=== PATIENT | male | born 1955 | race Caucasian/White ===

== ENCOUNTER → 2016-09-13 | Outpatient (CLI) | payer BC ==
[~2016-09-13] MED LIST: ALPH600C2 PO; ASCO10003 PO; ASTA1CAP PO; B-COTAB56 PO; CHOL100010 PO; COEN50CA22 PO; HYDR-5688 PO; IBUP-1050 PO; LYSI100010 PO; MAGN1CAP2 PO; MENA1CAP PO; MISCCAP52 PO; MISCCAP80 PO; OMG3 PO; PHOS1CAP3 PEG; SERT50TA PO; VITAL RED PO; VTMB12 PO; [UNRECOGNIZED DRUG - CODE] PO; [UNRECOGNIZED DRUG - OTHER] PO
--- NOTE | 2016-09-13 16:29 | DIAGNOSTIC IMAGING REPORT ---
MRI OF THE LEFT KNEE WITHOUT CONTRAST CLINICAL HISTORY: Medial left knee pain. Previous tibial fracture. COMPARISON STUDY: None. TECHNIQUE: Utilizing a 1.5 Regina magnet and dedicated coil, multiplanar, multiecho imaging of the left knee was performed without intravenous or intraarticular contrast. FINDINGS: There is deformity of the lateral tibial plateau with mild depression. This represents an old, healed fracture. There is no acute fracture. The cruciate and collateral ligaments are intact. The extensor mechanism is intact. There is no joint effusion. There is no suspicious marrow replacement. There is a complex vertical tear of the body of the medial meniscus. There is slight truncation of the posterior horn of the lateral meniscus. This is likely old. There is slight irregularity of the anterior horn of the lateral meniscus without definite tear. There is moderate to severe chondrosis within the lateral compartment with mild chondrosis within the patellofemoral compartment and moderate chondrosis within the medial compartment. IMPRESSION: 1. Vertical tear of the body of the medial meniscus. 2. Old lateral tibial plateau fracture with mild depression. 3. Moderate to severe chondrosis within the lateral compartment with moderate chondrosis within the medial compartment. 4. Intact cruciate and collateral ligaments. 5. Truncated lateral meniscus suggestive of old tear. Electronically signed by: Brent Canales M.D. 09/13/2016 4:27 PM Dictated Date/Time: 09/13/2016 4:22 PM
== END | disposition home or self-care (01) ==
LOC: C.MRIBC 15:00
PROVIDERS: ATTEND Orthopaedic Surgery
DX: M25.562 Pain in left knee (principal); S83.242A Other tear of medial meniscus, current injury, left knee, initial encounter; X58.XXXA Exposure to other specified factors, initial encounter; M94.8X8 Other specified disorders of cartilage, other site; M23.301 Other meniscus derangements, unspecified lateral meniscus, left knee

== ENCOUNTER → 2016-09-15 | Outpatient (CLI) | payer BC ==
[2016-09-15 11:24] LABS: URINE APPEARANCE CLOUDY (CLEAR); URINE BILIRUBIN NEG (NEG); URINE COLOR YELLOW; URINE NITRITE NEG (NEG); URINE SPECIFIC GRAVITY 1.003 (1.000-1.030); UROBILINOGEN NEG (NEG); ZZUR CULT IF INDIC CLEAN CATCH YES
[2016-09-15 11:27] LABS: MANUAL MICROSCOPIC REQUIRED? NO; REVIEW REQ? NO
== END | disposition home or self-care (01) ==
LOC: C.LABBC 09:56
PROVIDERS: ATTEND Internal Medicine
DX: R31.9 Hematuria, unspecified (principal)

== ENCOUNTER → 2016-09-15 | Outpatient (CLI) | payer BC ==
--- NOTE | 2016-09-15 10:59 | DIAGNOSTIC IMAGING REPORT ---
KUB CLINICAL HISTORY: Hematuria. FINDINGS: 2 AP abdominal radiographs are obtained. Correlation is made with radiographs of lumbar spine dated 06/09/2014 and pelvic radiograph dated 04/04/2011. There is a nonobstructed abdominal bowel gas pattern. There is no radiographic evidence of nephrolithiasis. Large pelvic phleboliths are unchanged from prior studies dating back to 2010. The visualized bony structures appear intact. IMPRESSION: 1. Nonobstructed abdominal bowel gas pattern. 2. There is no radiographic evidence of nephrolithiasis. 3. Large pelvic calcifications are consistent with phleboliths and unchanged dating back to 2010. Electronically signed by: Adam Larson M.D. 09/15/2016 10:58 AM Dictated Date/Time: 09/15/2016 10:56 AM
[2016-09-15 11:17] LABS: BASO % 0.2 %; BASO ABS # 0.02 K/uL (0-0.2); COMPLETE YES; EOS % 1.1 %; HEMATOCRIT 44.1 % (42-52); IG% 0.4 %; MEAN CELL VOLUME 90.2 fL (80-100); MEAN CORPUSCULAR HEMOGLOBIN 31.7 pg (25-34); MEAN CORPUSCULAR HGB CONC 35.1 g/dl (32-36); MEAN PLATELET VOLUME 10.5 fL (7.4-10.4); MONO % 9.1 %; NEUT % 72.2 %; PLATELET COUNT 232 K/uL (130-400); RED BLOOD COUNT 4.89 M/uL (4.7-6.1)
== END | disposition home or self-care (01) ==
LOC: C.RADBC 10:03
PROVIDERS: ATTEND Internal Medicine
DX: R31.9 Hematuria, unspecified (principal)

== ENCOUNTER → 2016-10-02 | Day surgery (SDC) | payer BC ==
[2016-10-01 14:35] VITALS: Ht 175.3 cm; Wt 90.9 kg
[~2016-10-02] VITALS: Ht 175.3 cm; Wt 90.9 kg
[~2016-10-02] MED LIST changes: -ALPH600C2 PO; -ASCO10003 PO; +ATROPINE SULFATE 0.1 MG/ML 5ML SYR IV PRN; -B-COTAB56 PO; +BUPIVACAINE 0.5 % 5 MG/1 ML PF 10ML VIAL ONE; +CEFAZOLIN 1000MG/55 ML D5W IV SCH; +CEFAZOLIN IV 2,000 MG/60 ML D5W IV ONE; -CHOL100010 PO; -COEN50CA22 PO; +DEXAMETHASONE SOD INJ 4 MG/ML VIAL ONE; +EpINEphrine INJ 1MG/ML AMP 1 MG/ML AMP ONE; +FENTANYL CITRATE INJ 50 MCG/1 ML 2 ML VIAL IV PRN; +FENTANYL CITRATE INJ 50 MCG/1 ML 2 ML VIAL ONE; -IBUP-1050 PO; +KETOROLAC TROMETHAMINE 30 MG/ML VIAL IV. PRN; +KETOROLAC TROMETHAMINE 30 MG/ML VIAL ONE; +LABETALOL HCL IV 5 MG/ML 20ML IV PRN; +LACTATED RINGER'S 1000ML 1,000 ML IV SCH; +LIDOCAINE HCL 2% 2 ML VIAL (20MG/ML) ONE; -MAGN1CAP2 PO; -MENA1CAP PO; +MIDAZOLAM HCL 1 MG/ML 2ML VIAL ONE; -MISCCAP52 PO; -MISCCAP80 PO; +NURSING VERBAL MED ORDER ONE; -OMG3 PO; +ONDANSETRON INJ 2 MG/ML 2 ML VIAL IV PRN; +ONDANSETRON INJ 2 MG/ML 2 ML VIAL ONE; +OXYCODONE/ACETAMINOPHEN 5-325 TAB PO PRN; -PHOS1CAP3 PEG; +PROPOFOL IV EMULSION 10 MG/ML 20 ML VIAL IV ONE; +ROPIVACAINE 0.5% 5 MG/ML 30 ML VIAL ONE; +SODIUM CHLORIDE 0.9% 1000ML 1,000 ML IV SCH; -VTMB12 PO; -[UNRECOGNIZED DRUG - CODE] PO; -[UNRECOGNIZED DRUG - OTHER] PO
--- NOTE | 2016-10-02 10:04 | History & Physical Bridge - SC ---
H&P Re-Evaluation Bridge Note: I have examined the patient, reviewed the History & Physical and in the interval since the performance of the History & Physical I have noted the following changes of clinical significance: No changes noted
--- NOTE | 2016-10-02 10:50 | [facility] Post Operative Brief Note ---
Immediate Operative Summary Operative Date Oct 02, 2016. Pre-Operative Diagnosis Medial meniscus tear left knee Post-Operative Diagnosis same as preop Procedure(s) Performed Left Knee Arthroscopy, Medial and Lateral Meniscectomy, Chrondroplasty and removal plica band Surgeon Dr. Sauceda Process Helper Surgeon(s) SHANKAR Diaz Estimated Blood Loss 0ml Findings ABOVE Specimens none per surgeon Anesthesia LMA Complication(s) None Disposition Recovery Room / PACU
--- NOTE | 2016-10-02 11:00 | Discharge Instructions-SurgCtr ---
Discharge Instructions Date of Service Oct 02, 2016. Visit Reason for Visit: Left Knee Medial Meniscus Tear Discharge Discharge Diagnosis / Problem: SAME ABOVE Discharge Goals Goal(s): Decrease discomfort, Improve function Activity Recommendations Activity Limitations: as noted below Lifting Limitations: until after follow-up appointment Exercise/Sports Limitations: until after follow-up appointment Weightbearing Status: Left weightbearing (as tolerated) Anesthesia . Post Anesthesia Instructions: If you have had General Anesthesia or IV Sedation: * Do not drive today. * Resume driving when surgeon permits. * Do not make important decisions or sign legal documents today. * Call surgeon for: 1. Temperature elevations greater than 101 degrees F. 2. Uncontrollable pain. 3. Excessive bleeding. 4. Persistent nausea and vomiting. 5. Medication intolerance (nausea, vomiting or rash). * For nausea and vomiting use only clear liquids such as: tea, soda, bouillon until nausea subsides, then gradually increase diet as tolerated. * If you have any concerns or questions, call your surgeon's office. If physician is unavailable and it is an emergency, call 911 or go to the nearest emergency room. . Instructions / Follow-Up Instructions / Follow-Up MEDICATIONS: * Resume previous medications unless instructed otherwise by your surgeon. * Always take pain medication on a full stomach or with food to avoid upset stomach. * Do not drink alcohol or drive while taking narcotics. * Ibuprofen or Tylenol may be taken if narcotic not needed. SPECIAL CARE INSTRUCTIONS: __ None _X_ Keep extremity elevated and iced x 48 hours; apply ice 20-30 minutes 8-10 times/day. May remove at night. __ Crutches __ May discard when able __ Brace/Post-op shoe __ 24 hrs/day __ Remove at night _X_ Dressing __ Maintain until seen in office, may shower with plastic over site _X_ Remove dressings in 24-48 hours and then may shower _X_ Cover incisions with band-aids after showering __ Do not remove steri-strips Call physician if chills or temperature rises above 102 degrees or pain unrelieved by prescribed pain medications. Office [phone] Diet Recommendations Home Diet: resume previous diet Procedures Procedures Performed: Left Knee Arthroscopy, Medial and Lateral Meniscectomy, Chrondroplasty and removal plica band Pending Studies Studies pending at discharge: no Medical Emergencies . Who to Call and When: Medical Emergencies: If at any time you feel your situation is an emergency, please call 911 immediately. . Non-Emergent Contact Non-Emergency issues call your: Primary Care Provider . . "Provider Documentation" section prepared by Oscar Mclain.
--- NOTE | 2016-10-02 11:30 | OPERATIVE REPORT ---
DATE OF OPERATION: 10/02/2016 PREOPERATIVE DIAGNOSIS: Medial meniscus tear left knee. POSTOPERATIVE DIAGNOSES: 1. Medial meniscus tear left knee. 2. Anterior horn lateral meniscus tear. 3. Grade 3-4 articular changes of the trochlear groove distal femur. 4. He had grade 2 changes to the medial femoral condyle articular changes. 5. He had a large thick plica band in the suprapatellar joint. PROCEDURES: 1. Left knee arthroscopy, partial medial and lateral meniscectomies. 2. Removal of plica band. 3. Chondroplasty trochlear groove distal femur. SURGEON: Dr. Sauceda. NON LICENSED NUCLEAR EQUIPMENT OPERATOR: Oscar Mclain PA-C. ANESTHESIOLOGIST: Dr. Hernandez. ANESTHESIA: LMA. DRAINS: None. COMPLICATIONS: None. CONDITION: The patient tolerated the procedure well and returned to recovery room in apparent satisfactory condition. 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 He has had some trauma to the leg for fracture that was treated in traction but he presents with knee problems consistent with medial meniscus tear per his MRI exam. He would like to go ahead and proceed with surgery. The procedure, expected outcome, side effects, and risks were all explained in detail in the office. OPERATION AND FINDINGS: PROCEDURE: The patient was taken to the operating room at which time he was placed supine on the operating table and put to sleep by the anesthesia department. Examination of left knee was performed. Ligamentous joiner it was stable. Went ahead and prepped and draped in usual sterile fashion. Began arthroscopic examination in the anteromedial and anterolateral portals. Immediately we found a flap tear of the posterior horn of the medial meniscus. We came in with upbiting scissors and full radius resector and trimmed it back to a stable rim. We found articular changes, grade 2 to the femoral condyle, mostly on the flexion surface. A lot of scar tissue in the intercondylar notch. Over into the lateral compartment were found anterior horn lateral meniscus tear and articular changes on the femoral condyle here, probably grade 2-3 changes. Debridement was done here both the meniscus and also the epicondyle. ACL was fine. The patellofemoral joint we found very large thick plica bands which was removed. Underneath the surface of the patella it was in good shape but he had grade 3 changes almost 4 to the trochlear groove of the distal femur. Chondroplasty was performed here. The knee then was copiously irrigated. All cannulas were removed. Portals were closed with 4-0 nylon sutures. 30 mL of ropivacaine, 10 mg of Toradol, and 1 mL of epinephrine was placed in the knee joint. Placed a sterile dressing of Xeroform, 4 x 4, ABD, Sof-Rol, and Kemar bandage and returned back to recovery room in apparent satisfactory condition. SURGICAL FINDINGS: Included 1. Medial meniscus tear. 2. Anterior horn lateral meniscus tear. 3. Grade 3 articular changes to the distal trochlear groove of the femur and also articular changes to the medial and lateral femoral condyles, probably grade 2. I attest to the content of the Intraoperative Record and any orders documented therein. Any exceptio ns are noted below.
--- NOTE | 2016-10-02 11:45 | Anesthesia Progress Nt - [facility] ---
Anesthesia Post Op Note Date & Time Oct 02, 2016 at 11:46 Vital Signs Pain Intensity: 0 Vital Signs Past 12 Hours Date Time Temp Pulse Resp B/P Pulse Ox O2 Delivery O2 Flow Rate FiO2 10/02/16 11:35 54 12 10/02/16 11:35 54 9 104/72 98 10/02/16 11:33 36.4 10/02/16 11:30 49 11 105/74 98 10/02/16 11:30 49 11 10/02/16 11:25 46 10 10/02/16 11:25 45 10 98/71 100 10/02/16 11:20 47 9 10/02/16 11:20 47 9 100/72 100 10/02/16 11:15 51 14 10/02/16 11:15 53 14 103/68 100 10/02/16 11:10 46 17 102/70 99 10/02/16 11:10 45 17 10/02/16 11:05 44 13 10/02/16 11:05 44 13 97/69 99 10/02/16 11:00 44 16 10/02/16 11:00 44 16 101/73 98 10/02/16 10:58 36.2 47 12 118/70 98 Diffusion Mask 10 10/02/16 09:11 36.2 51 16 118/80 97 Room Air Notes Mental Status: alert / awake / arousable, participated in evaluation Pt Amnestic to Procedure: Yes Nausea / Vomiting: adequately controlled Pain: adequately controlled Airway Patency, RR, SpO2: stable & adequate BP & HR: stable & adequate Hydration State: stable & adequate Anesthetic Complications: no major complications apparent
[2016-10-02 11:51] VITALS: TEMP 36.2
[2016-10-02 12:14] VITALS: BP 123/81; PULSE 49; O2SAT 97
== END | disposition home or self-care (01) ==
LOC: X.SURG 08:49
PROVIDERS: ATTEND Orthopaedic Surgery
DX: S83.242A Other tear of medial meniscus, current injury, left knee, initial encounter (principal); X58.XXXA Exposure to other specified factors, initial encounter; S83.282A Other tear of lateral meniscus, current injury, left knee, initial encounter; M67.52 Plica syndrome, left knee

== ENCOUNTER → 2016-10-05 | Outpatient (CLI) | payer BC ==
[~2016-10-05] MED LIST changes: -ATROPINE SULFATE 0.1 MG/ML 5ML SYR IV PRN; -BUPIVACAINE 0.5 % 5 MG/1 ML PF 10ML VIAL ONE; -CEFAZOLIN 1000MG/55 ML D5W IV SCH; -CEFAZOLIN IV 2,000 MG/60 ML D5W IV ONE; -DEXAMETHASONE SOD INJ 4 MG/ML VIAL ONE; -EpINEphrine INJ 1MG/ML AMP 1 MG/ML AMP ONE; -FENTANYL CITRATE INJ 50 MCG/1 ML 2 ML VIAL IV PRN; -FENTANYL CITRATE INJ 50 MCG/1 ML 2 ML VIAL ONE; -KETOROLAC TROMETHAMINE 30 MG/ML VIAL IV. PRN; -KETOROLAC TROMETHAMINE 30 MG/ML VIAL ONE; -LABETALOL HCL IV 5 MG/ML 20ML IV PRN; -LACTATED RINGER'S 1000ML 1,000 ML IV SCH; -LIDOCAINE HCL 2% 2 ML VIAL (20MG/ML) ONE; -MIDAZOLAM HCL 1 MG/ML 2ML VIAL ONE; -NURSING VERBAL MED ORDER ONE; -ONDANSETRON INJ 2 MG/ML 2 ML VIAL IV PRN; -ONDANSETRON INJ 2 MG/ML 2 ML VIAL ONE; -OXYCODONE/ACETAMINOPHEN 5-325 TAB PO PRN; -PROPOFOL IV EMULSION 10 MG/ML 20 ML VIAL IV ONE; -ROPIVACAINE 0.5% 5 MG/ML 30 ML VIAL ONE; -SODIUM CHLORIDE 0.9% 1000ML 1,000 ML IV SCH
--- NOTE | 2016-10-05 10:02 | DIAGNOSTIC IMAGING REPORT ---
ULTRASOUND KIDNEYS AND BLADDER CLINICAL HISTORY: Hematuria. COMPARISON STUDY: KUB dated 09/15/2016. TECHNIQUE: Real-time, grayscale, and color flow sonography of the kidneys and bladder is performed. Images are reviewed in the transverse and longitudinal planes. FINDINGS: Kidneys: The kidneys demonstrate cortical atrophy and are normal in echotexture. The right kidney measures 11.6 x 6.2 x 5.0 cm and the left kidney measures 10.9 x 6.8 x 4.8 cm. There is no hydronephrosis. No shadowing renal calculi are identified. There is no sonographic evidence of contour deforming renal mass lesion. No perinephric fluid is identified. Bladder: The bladder is normal in appearance. Bilateral ureteral jets were seen. IMPRESSION: 1. The kidneys demonstrate mild cortical atrophy and are without hydronephrosis. 2. The bladder is normal as visualized. Electronically signed by: Adam Larson M.D. 10/05/2016 10:00 AM Dictated Date/Time: 10/05/2016 9:59 AM
== END | disposition home or self-care (01) ==
LOC: C.ULTR 09:26
PROVIDERS: ATTEND Internal Medicine
DX: R31.9 Hematuria, unspecified (principal)

== ENCOUNTER → 2016-11-28 | Outpatient (CLI) | payer BC | END | disposition home or self-care (01) | LOC: C.LAB1850 10:18 | PROVIDERS: ATTEND Internal Medicine | DX: R31.9 Hematuria, unspecified (principal); N40.0 Benign prostatic hyperplasia without lower urinary tract symptoms; Z11.59 Encounter for screening for other viral diseases ==

== ENCOUNTER → 2016-12-04 | Outpatient (CLI) | payer BC | END | disposition home or self-care (01) | LOC: C.PATHSPEC 11:28 | PROVIDERS: ATTEND Urology | DX: R31.9 Hematuria, unspecified (principal) ==

== ENCOUNTER → 2016-12-12 | Outpatient (CLI) | payer BC ==
[~2016-12-12] MED LIST changes: +OPTIRAY 320 IV PRN
--- NOTE | 2016-12-12 10:20 | DIAGNOSTIC IMAGING REPORT ---
ABDOMEN AND PELVIS CT WITH AND WITHOUT IV CONTRAST, UROGRAM PROTOCOL CT DOSE: 1862.70 mGycm HISTORY: R31.9 Hematuria. not diabetic, no latex allergy, no iodine allergy TECHNIQUE: Multiaxial CT images of the abdomen and pelvis were performed both before and after the use of intravenous contrast to evaluate the urinary system. Maximal intensity projection images were performed at the workstation by the radiologist. COMPARISON STUDY: KUB 09/15/2016. FINDINGS: No renal or ureteral calculi. No hydronephrosis. No suspicious filling defects seen within the bilateral renal collecting systems, ureters, or bladder. Of note, the bladder is now well-distended and not well opacified resulting in suboptimal evaluation for a bladder mass. The lung bases are clear. The liver, spleen, gallbladder, pancreas, kidneys, and adrenal glands are within normal limits. No bowel wall thickening or obstruction. The pelvic organs are unremarkable. No suspicious lytic or blastic osseous lesions. Small fat-containing left inguinal hernia. Normal appendix. IMPRESSION: 1. No renal or ureteral stones. No hydronephrosis. 2. No suspicious filling defects seen within the opacified bilateral renal collecting systems, ureters, or bladder. Electronically signed by: Yair Gross M.D. 12/12/2016 10:19 AM Dictated Date/Time: 12/12/2016 9:58 AM
== END | disposition home or self-care (01) ==
LOC: C.CTS 09:12
PROVIDERS: ATTEND Urology
DX: R31.9 Hematuria, unspecified (principal)

== ENCOUNTER → 2017-04-02 | Day surgery (SDC) | payer BC ==
[2017-03-21 08:34] VITALS: Ht 175.3 cm; Wt 90.9 kg
[~2017-04-02] VITALS: Ht 175.3 cm; Wt 90.9 kg
[~2017-04-02] MED LIST changes: -HYDR-5688 PO; +LIDOCAINE HCL 2% 2 ML VIAL (20MG/ML) ONE; -OPTIRAY 320 IV PRN; +PROPOFOL IV EMULSION 10 MG/ML 20 ML VIAL IV ONE
[2017-04-02 08:09] VITALS: TEMP 36.2
--- NOTE | 2017-04-02 08:21 | Endo History and Physical ---
History & Physical Date of Service: Apr 02, 2017. Chief Complaint: SCREENING Referring Physician: DR. BRUMFIELD History of Present Illness 61 yo CM who presents for screening colonoscopy. Past Medical History Anxiety, Depression Past Surgical History Hx Cardiac Surgery: No Hx Internal Defibrillator: No Hx Pacemaker: No Hx Abdominal Surgery: Yes (HERNIA REPAIR) Hx of Implantable Prosthesis: No Hx Post-Op Nausea and Vomiting: No Hx Cancer Surgery: No Hx Thoracic Surgery: No Hx Orthopedic: Yes (C3-4 FUSION (FULL ROM), LT TIBIA COMPOUND FRACTURE REPAIR X2, LT KNEE SCOPE) Hx Urinary Tract Surgery: No Family History None Social History Smoking Status: Former Smoker Hx Substance Use: No Hx Alcohol Use: No Allergies Coded Allergies: No Known Allergies (Verified , 04/02/17) Current Medications Reported Home Medications Medications Dose Route/Sig Max Daily Dose Days Date Category [Vital Red] 1 Dose PO QAM 10/01/16 Reported Lysine (Lysine Hcl) 1,000 Mg Tab 3,000 Mg PO QAM 09/17/14 Reported Astaxanthin 4 Mg Cap 8 Mg PO QAM 09/17/14 Reported Zoloft (Sertraline HCl) 50 Mg Tab 75 Mg PO HS 09/07/14 Reported Vital Signs Weight (Kilograms): 90.91 Height (Feet): 5 Height (Inches): 9 Date Time Temp Pulse Resp B/P (MAP) Pulse Ox O2 Delivery O2 Flow Rate FiO2 04/02/17 08:09 36.2 57 16 133/83 (100) 96 Room Air Physical Exam General Appearance: WD/WN, no apparent distress Respiratory/Chest: Auscultation: breath sounds normal Cardiovascular: Heart Auscultation: RRR Abdomen: Bowel Sounds: normal Inspection & Palpation: soft, non-distended, no tenderness, guarding & rebound Assessment and Plan Assessment: 61 yo CM who presents for screening colonoscopy. Plan: Proceed with colonoscopy.
--- NOTE | 2017-04-02 09:09 | GI REPORT ---
Procedure Date: 04/02/2017 8:19 AM Procedure: Colonoscopy Indications: Screening for colorectal malignant neoplasm Medicines: Monitored Anesthesia Care Complications: No immediate complications. Estimated Blood Loss: Estimated blood loss: none. Procedure: Pre-Anesthesia Assessment: - Prior to the procedure, a History and Physical was performed, and patient medications and allergies were reviewed. The patient's tolerance of previous anesthesia was also reviewed. The risks and benefits of the procedure and the sedation options and risks were discussed with the patient. All questions were answered, and informed consent was obtained. Prior Anticoagulants: The patient has taken no previous anticoagulant or antiplatelet agents. ASA Grade Assessment: I - A normal, healthy patient. After reviewing the risks and benefits, the patient was deemed in satisfactory condition to undergo the procedure. After I obtained informed consent, the scope was passed under direct vision. Throughout the procedure, the patient's blood pressure, pulse, and oxygen saturations were monitored continuously. The Scope was introduced through the anus and advanced to the terminal ileum. The colonoscopy was performed without difficulty. The patient tolerated the procedure well. The quality of the bowel preparation was good. The terminal ileum, ileocecal valve, appendiceal orifice, and rectum were photographed. Findings: A 5 mm polyp was found in the sigmoid colon. The polyp was sessile. The polyp was removed with a hot snare. Resection and retrieval were complete. Non-bleeding internal hemorrhoids were found during retroflexion. The hemorrhoids were small. Impression: - One 5 mm polyp in the sigmoid colon, removed with a hot snare. Resected and retrieved. - Non-bleeding internal hemorrhoids. Recommendation: - Resume previous diet. - Continue present medications. - Repeat colonoscopy for surveillance based on pathology results. - Return to primary care physician as previously scheduled. Alex Medrano DO 04/02/2017 9:08:32 AM This report has been signed electronically. Note Initiated On: 04/02/2017 8:19 AM I attest to the content of the Intraoperative Record and orders documented therein, exceptions below
--- NOTE | 2017-04-02 09:16 | Discharge Instructions ---
Endoscopy Patient Instructions Date / Procedure(s) Performed Apr 02, 2017. Colonoscopy Allergy Information Coded Allergies: No Known Allergies (Verified , 04/02/17) Discharge Date / Findings Apr 02, 2017. Colon polyp Internal hemorrhoids Medication Instructions OK to resume all medications today as prescribed Reported Home Medications Medications Dose Route/Sig Max Daily Dose Days Date Category [Vital Red] 1 Dose PO QAM 10/01/16 Reported Lysine (Lysine Hcl) 1,000 Mg Tab 3,000 Mg PO QAM 09/17/14 Reported Astaxanthin 4 Mg Cap 8 Mg PO QAM 09/17/14 Reported Zoloft (Sertraline HCl) 50 Mg Tab 75 Mg PO HS 09/07/14 Reported Provider Instructions Activity Restrictions - No exercising or heavy lifting for 24 hours. - Do not drink alcohol the day of the procedure. - Do not drive a car or operate machinery until the day after the procedure. - Do not make any important decisions or sign important papers in 24 hours after the procedure. Following Day: - Return to full activity which may include returning to work/school. Diet Start your diet with liquids and light foods (jello, soup, juice, toast). Then eat your usual diet if not nauseated. Treatment For Common After Affects For mild abdominal pain, bloating, or excessive gas: - Rest - Eat lightly - Lie on right side Follow-Up Information Follow-up with DR. BRUMFIELD as scheduled Anesthesia Information What You Should Know You have had a procedure that required some medicine to reduce anxiety and discomfort. This treatment is called moderate sedation. After receiving the treatment, you may be sleepy, but you will be able to breathe on your own. The effects of the treatment may last for several hours. Follow these instructions along with Activity/Diet recommendations noted above: * Do NOT do anything where dizziness or clumsiness would be dangerous. * Rest quietly at home today, then you can be up and about tomorrow. * Have a responsible person stay with you the rest of today. * You may have had an I.V. today. If so, you may take the dressing off later today. Recommendations Call your doctor if: * Trouble breathing * Continuous vomiting for more than 24 hours * Temperature above 101 degrees * Severe abdominal pain or bloating * Pain not relieved by pain medicine ordered * There is increased drainage or redness from any incision * A large amount of rectal bleeding greater than 2-3 tablespoons. (If you had a polyp/s removed or have hemorrhoids, a small amount of blood - from the rectum is to be expected.) * You have any unanswered questions or concerns. IN THE EVENT OF A SERIOUS EMERGENCY, GO TO THE NEAREST EMERGENCY ROOM Your discharge instructions were prepared by provider Alex Medrano. Patient Instructions Signature Page Sadiq Rivas Patient (or Guardian) Signature/Date: I have read and understand the instructions given to me by my caregivers. Caregiver/RN/Doctor Signature/Date: The above-named patient and/or guardian has received patient instructions on this date. + Original Patient Signature Page (only) stays with chart. Please make copy for patient.
--- NOTE | 2017-04-02 09:23 | Anesthesiology Progress Note ---
Anesthesia Post Op Note Date & Time Apr 02, 2017 at 09:23 Vital Signs Pain Intensity: 0 Vital Signs Past 12 Hours Date Time Temp Pulse Resp B/P (MAP) Pulse Ox O2 Delivery O2 Flow Rate FiO2 04/02/17 09:21 53 18 123/80 (94) 98 Room Air 04/02/17 09:05 57 18 117/86 (96) 96 Room Air 04/02/17 08:09 36.2 57 16 133/83 (100) 96 Room Air Notes Mental Status: alert / awake / arousable, participated in evaluation Pt Amnestic to Procedure: Yes Nausea / Vomiting: adequately controlled Pain: adequately controlled Airway Patency, RR, SpO2: stable & adequate BP & HR: stable & adequate Hydration State: stable & adequate Anesthetic Complications: no major complications apparent
[2017-04-02 09:37] VITALS: BP 125/87; PULSE 52; O2SAT 95
== END | disposition home or self-care (01) ==
LOC: C.GI 07:44
PROVIDERS: ATTEND Internal Medicine
DX: Z12.11 Encounter for screening for malignant neoplasm of colon (principal); D12.5 Benign neoplasm of sigmoid colon; K64.8 Other hemorrhoids; F32.9 Major depressive disorder, single episode, unspecified; Z98.1 Arthrodesis status; Z87.891 Personal history of nicotine dependence

== ENCOUNTER → 2017-04-26 | Outpatient (CLI) | payer BC ==
[~2017-04-26] MED LIST changes: -LIDOCAINE HCL 2% 2 ML VIAL (20MG/ML) ONE; -PROPOFOL IV EMULSION 10 MG/ML 20 ML VIAL IV ONE
--- NOTE | 2017-04-26 12:30 | DIAGNOSTIC IMAGING REPORT ---
CHEST 2 VIEWS ROUTINE CLINICAL HISTORY: Right-sided rib pain. COMPARISON STUDY: Chest CT September 10, 2012. FINDINGS: There is no pneumothorax. A small right pleural effusion is present. This may reflect a hemothorax. Note is made of acute mildly displaced fractures of the lateral right eighth and ninth ribs. No left-sided rib fractures are identified. Mild bibasilar opacities favor atelectasis. Cardiac size is normal. Pulmonary vascularity is normal. IMPRESSION: 1. Acute mildly displaced lateral right eighth and ninth rib fractures. No pneumothorax. 2. Small amount of right pleural fluid which may reflect a small hemothorax given rib fractures. Electronically signed by: Brent Canales M.D. 04/26/2017 12:29 PM Dictated Date/Time: 04/26/2017 12:25 PM
[2017-04-26 13:08] LABS: BASO % 0.6 %; BASO ABS # 0.04 K/uL (0-0.2); COMPLETE YES; EOS % 2.9 %; HEMATOCRIT 37.2 % (42-52); IG% 0.2 %; LYMPH % 30.4 %; MEAN CELL VOLUME 87.1 fL (80-100); MEAN CORPUSCULAR HEMOGLOBIN 30.9 pg (25-34); MEAN CORPUSCULAR HGB CONC 35.5 g/dl (32-36); MEAN PLATELET VOLUME 10.4 fL (7.4-10.4); MONO % 8.2 %; NEUT % 57.7 %; PLATELET COUNT 242 K/uL (130-400); RED BLOOD COUNT 4.27 M/uL (4.7-6.1); WHITE BLOOD COUNT 6.25 K/uL (4.8-10.8)
[2017-04-26 13:37] LABS: ALT/SGPT 21 U/L (12-78); BLOOD UREA NITROGEN 25 mg/dl (7-18); BUN/CREATININE RATIO 24.8 (10-20); CALCIUM 8.4 mg/dl (8.5-10.1); CARBON DIOXIDE 27 mmol/L (21-32); CHLORIDE 110 mmol/L (98-107); CREATININE 0.99 mg/dl (0.60-1.40); GLUCOSE 83 mg/dl (70-99); POTASSIUM 4.4 mmol/L (3.5-5.1); SODIUM 141 mmol/L (136-145)
[2017-04-26 13:40] LABS: ALB/GLOB RATIO 0.9 (0.9-2); ALKALINE PHOSPHATASE 65 U/L (45-117); AST/SGOT 21 U/L (15-37)
== END | disposition home or self-care (01) ==
LOC: C.RAD1850 12:08
PROVIDERS: ATTEND Internal Medicine
DX: S22.41XA Multiple fractures of ribs, right side, initial encounter for closed fracture (principal); M25.471 Effusion, right ankle; M25.472 Effusion, left ankle; R91.8 Other nonspecific abnormal finding of lung field; X58.XXXA Exposure to other specified factors, initial encounter

== ENCOUNTER → 2017-04-30 | Outpatient (CLI) | payer BC ==
--- NOTE | 2017-04-30 08:52 | DIAGNOSTIC IMAGING REPORT ---
CHEST 2 VIEWS ROUTINE CLINICAL HISTORY: Rib fractures. COMPARISON STUDY: Chest radiograph April 26, 2017. FINDINGS: No pneumothorax. Trace right pleural fluid is unchanged. Mild left basilar opacity is suggestive of atelectasis. Acute mildly displaced fractures of the right eighth and ninth ribs are unchanged in appearance. Cardiac size is normal. Mediastinal contours are normal. IMPRESSION: 1. No pneumothorax. No change in trace right pleural fluid which could reflect a tiny hemothorax. 2. No change in appearance of acute mildly displaced right eighth and ninth rib fractures. Electronically signed by: Brent Canales M.D. 04/30/2017 8:51 AM Dictated Date/Time: 04/30/2017 8:44 AM
[2017-04-30 09:40] LABS: BASO % 0.6 %; BASO ABS # 0.05 K/uL (0-0.2); COMPLETE YES; EOS % 1.7 %; HEMATOCRIT 40.2 % (42-52); IG% 0.4 %; LYMPH % 29.5 %; LYMPH ABS # 2.29 K/uL (1.2-3.4); MEAN CELL VOLUME 89.1 fL (80-100); MEAN CORPUSCULAR HEMOGLOBIN 31.3 pg (25-34); MEAN CORPUSCULAR HGB CONC 35.1 g/dl (32-36); MEAN PLATELET VOLUME 10.7 fL (7.4-10.4); MONO % 10.3 %; NEUT % 57.5 %; PLATELET COUNT 264 K/uL (130-400); RED BLOOD COUNT 4.51 M/uL (4.7-6.1); WHITE BLOOD COUNT 7.76 K/uL (4.8-10.8)
[2017-04-30 09:42] LABS: URINE APPEARANCE CLEAR (CLEAR); URINE BILIRUBIN NEG (NEG); URINE COLOR YELLOW; URINE EPITHELIAL CELL AUTO 20-30 /lpf (0-5); URINE NITRITE NEG (NEG); URINE SPECIFIC GRAVITY 1.022 (1.000-1.030); UROBILINOGEN NEG (NEG)
[2017-04-30 09:44] LABS: REVIEW REQ? NO
[2017-04-30 09:45] LABS: MANUAL MICROSCOPIC REQUIRED? NO
[2017-04-30 09:54] LABS: ALT/SGPT 42 U/L (12-78); AST/SGOT 29 U/L (15-37); BLOOD UREA NITROGEN 32 mg/dl (7-18); BUN/CREATININE RATIO 31.2 (10-20); CALCIUM 8.5 mg/dl (8.5-10.1); CARBON DIOXIDE 26 mmol/L (21-32); CHLORIDE 107 mmol/L (98-107); CREATININE 1.04 mg/dl (0.60-1.40); GLUCOSE 79 mg/dl (70-99); POTASSIUM 4.9 mmol/L (3.5-5.1); SODIUM 140 mmol/L (136-145)
[2017-04-30 10:07] LABS: ALB/GLOB RATIO 0.8 (0.9-2); ALKALINE PHOSPHATASE 68 U/L (45-117); C-REACTIVE PROTEIN < 0.29 mg/dl (0-0.29)
[2017-04-30 10:10] LABS: LYME DISEASE AB IGG NEG (NEG); LYME DISEASE AB IGM NEG (NEG)
[2017-04-30 10:12] LABS: CREATININE RANDOM URINE 81.5 mg/dl
[2017-04-30 10:44] LABS: RATIO 6429.5 mcg/mg (0-30.0)
== END | disposition home or self-care (01) ==
LOC: C.RAD1850 08:10
PROVIDERS: ATTEND Internal Medicine
DX: S22.41XA Multiple fractures of ribs, right side, initial encounter for closed fracture (principal); X58.XXXA Exposure to other specified factors, initial encounter; R60.9 Edema, unspecified; R53.83 Other fatigue

== ENCOUNTER → 2017-05-02 | Outpatient (CLI) | payer BC ==
--- NOTE | 2017-05-02 09:23 | DIAGNOSTIC IMAGING REPORT ---
RIGHT FIFTH FINGER CLINICAL HISTORY: S62.609A finger fracture COMPARISON: None. DISCUSSION: No acute fractures are visualized. There are degenerative changes present at the level of the proximal interphalangeal joint. There are no dislocations. The lateral view is limited from a positioning standpoint. IMPRESSION: No acute fractures or dislocations identified. Electronically signed by: Kaveh Izaguirre M.D. 05/02/2017 9:22 AM Dictated Date/Time: 05/02/2017 9:20 AM
[2017-05-02 11:15] LABS: URINE TOTAL PROTEIN CALC 12340.3 mg/24 hr (0-149.1)
[2017-05-06 11:08] LABS: ALBUMIN % 76.49 %; ALPHA-2-GLOBULIN % 2.69 %; CREATININE UR 51 MG/DL (20-370)
== END | disposition home or self-care (01) ==
LOC: C.LAB1850 08:45
PROVIDERS: ATTEND Internal Medicine
DX: S62.609A Fracture of unspecified phalanx of unspecified finger, initial encounter for closed fracture (principal); R80.9 Proteinuria, unspecified; X58.XXXA Exposure to other specified factors, initial encounter

== ENCOUNTER → 2017-05-27 | Outpatient (CLI) | payer BC ==
[2017-05-27 16:39] LABS: BLOOD UREA NITROGEN 17 mg/dl (7-18); BUN/CREATININE RATIO 18.5 (10-20); CALCIUM 8.2 mg/dl (8.5-10.1); CARBON DIOXIDE 24 mmol/L (21-32); CHLORIDE 102 mmol/L (98-107); CREATININE 0.92 mg/dl (0.60-1.40); GLUCOSE 85 mg/dl (70-99); MAGNESIUM 2.2 mg/dl (1.8-2.4); POTASSIUM 4.2 mmol/L (3.5-5.1); SODIUM 135 mmol/L (136-145)
[2017-05-27 16:51] LABS: CHOLESTEROL 401 mg/dl (0-200); CHOLESTEROL/HDL RATIO 6.5; HDL CHOLESTEROL 62 mg/dl; LDL CHOLESTEROL CALCULATED 261 mg/dl; PHOSPHORUS 3.2 mg/dl (2.5-4.9); TRIGLYCERIDES 390 mg/dl (0-150); VERY LOW DENSITY LIPOPROT CALC 78 mg/dl
[2017-05-29 15:00] LABS: ALBUMIN 2.7 G/DL (3.8-4.8); FREE KAPPA 29.5 MG/L (3.3-19.4); FREE KAPPA/LAMBDA RATIO 1.27 (0.26-1.65); FREE LAMBDA 23.3 MG/L (5.7-26.3); GAMMA GLOBULIN 0.3 G/DL (0.8-1.7); TOTAL PROTEIN 4.4 G/DL (6.2-8.3)
== END | disposition home or self-care (01) ==
LOC: C.LAB1850 15:20
PROVIDERS: ATTEND Internal Medicine
DX: N04.9 Nephrotic syndrome with unspecified morphologic changes (principal); R94.6 Abnormal results of thyroid function studies

== ENCOUNTER → 2017-06-28 | Outpatient (CLI) | payer BC ==
[2017-06-28 09:36] LABS: BASO % 0.2 %; BASO ABS # 0.02 K/uL (0-0.2); COMPLETE YES; EOS % 0.9 %; HEMATOCRIT 39.6 % (42-52); IG% 1.2 %; LYMPH % 37.5 %; LYMPH ABS # 4.55 K/uL (1.2-3.4); MEAN CORPUSCULAR HEMOGLOBIN 31.3 pg (25-34); MEAN CORPUSCULAR HGB CONC 34.3 g/dl (32-36); MEAN PLATELET VOLUME 9.4 fL (7.4-10.4); MONO % 9.2 %; PLATELET COUNT 291 K/uL (130-400); RED BLOOD COUNT 4.35 M/uL (4.7-6.1); WHITE BLOOD COUNT 12.12 K/uL (4.8-10.8)
[2017-06-28 09:47] LABS: URINE APPEARANCE CLEAR (CLEAR); URINE BILIRUBIN NEG (NEG); URINE COLOR YELLOW; URINE EPITHELIAL CELL AUTO 0-5 /lpf (0-5); URINE NITRITE NEG (NEG); URINE PH 6.5 (4.5-7.5); URINE SPECIFIC GRAVITY 1.012 (1.000-1.030); UROBILINOGEN NEG (NEG); ZZUR CULT IF INDIC CLEAN CATCH NO
[2017-06-28 09:48] LABS: MANUAL MICROSCOPIC REQUIRED? NO; REVIEW REQ? NO
[2017-06-28 10:05] LABS: CREATININE, URINE 24.7 mg/dl; URINE PROTIEN/CREAT RATIO 1.6 (0-0.2); URINE TOTAL PROTEIN 38.7 mg/dl (0-11.9)
[2017-06-28 10:18] LABS: BLOOD UREA NITROGEN 27 mg/dl (7-18); BUN/CREATININE RATIO 34.2 (10-20); CALCIUM 8.2 mg/dl (8.5-10.1); CARBON DIOXIDE 29 mmol/L (21-32); CHLORIDE 104 mmol/L (98-107); CREATININE 0.78 mg/dl (0.60-1.40); GLUCOSE 81 mg/dl (70-99); MAGNESIUM 2.1 mg/dl (1.8-2.4); PHOSPHORUS 2.1 mg/dl (2.5-4.9); SODIUM 137 mmol/L (136-145)
== END | disposition home or self-care (01) ==
LOC: C.LAB1850 08:35
PROVIDERS: ATTEND Internal Medicine Nephrology
DX: N04.9 Nephrotic syndrome with unspecified morphologic changes (principal); N05.1 Unspecified nephritic syndrome with focal and segmental glomerular lesions

== ENCOUNTER → 2017-07-26 | Outpatient (CLI) | payer BC ==
[2017-07-26 10:02] LABS: BLOOD UREA NITROGEN 29 mg/dl (7-18); CALCIUM 8.9 mg/dl (8.5-10.1); CARBON DIOXIDE 26 mmol/L (21-32); CREATININE 1.03 mg/dl (0.60-1.40); GLUCOSE 85 mg/dl (70-99); PHOSPHORUS 2.9 mg/dl (2.5-4.9); POTASSIUM 4.7 mmol/L (3.5-5.1); SODIUM 133 mmol/L (136-145)
== END | disposition home or self-care (01) ==
LOC: C.LAB1850 08:32
PROVIDERS: ATTEND Internal Medicine Nephrology
DX: N05.1 Unspecified nephritic syndrome with focal and segmental glomerular lesions (principal)

== ENCOUNTER → 2017-08-30 | Outpatient (CLI) | payer BC ==
[2017-08-30 09:35] LABS: BASO % 0.3 %; BASO ABS # 0.03 K/uL (0-0.2); EOS % 0.7 %; EOS ABS # 0.08 K/uL (0-0.5); HEMATOCRIT 44.3 % (42-52); HEMOGLOBIN 15.4 g/dL (14.0-18.0); IG# 0.18 K/uL (0.00-0.02); LYMPH % 30.6 %; LYMPH ABS # 3.58 K/uL (1.2-3.4); MEAN CELL VOLUME 93.7 fL (80-100); MEAN CORPUSCULAR HEMOGLOBIN 32.6 pg (25-34); MEAN CORPUSCULAR HGB CONC 34.8 g/dl (32-36); MEAN PLATELET VOLUME 9.6 fL (7.4-10.4); MONO % 10.2 %; NEUT % 56.7 %; NEUT ABS # 6.64 K/uL (1.4-6.5); PLATELET COUNT 264 K/uL (130-400); RED CELL DISTRIBUTION WIDTH CV 13.3 % (11.5-14.5); RED CELL DISTRIBUTION WIDTH SD 45.7 fL (36.4-46.3); WHITE BLOOD COUNT 11.71 K/uL (4.8-10.8)
[2017-08-30 09:50] LABS: ALBUMIN 3.4 gm/dl (3.4-5.0); BLOOD UREA NITROGEN 19 mg/dl (7-18); CALCIUM 8.9 mg/dl (8.5-10.1); CARBON DIOXIDE 28 mmol/L (21-32); CHOLESTEROL 218 mg/dl (0-200); CREATININE 0.91 mg/dl (0.60-1.40); GLUCOSE 83 mg/dl (70-99); POTASSIUM 3.9 mmol/L (3.5-5.1); SODIUM 133 mmol/L (136-145)
[2017-08-30 09:52] LABS: LDL CHOLESTEROL CALCULATED 98 mg/dl; PHOSPHORUS 2.6 mg/dl (2.5-4.9)
== END | disposition home or self-care (01) ==
LOC: C.LAB1850 08:30
PROVIDERS: ATTEND Internal Medicine Nephrology
DX: R31.9 Hematuria, unspecified (principal)

== ENCOUNTER → 2017-09-27 | Outpatient (CLI) | payer BC ==
[2017-09-27 09:58] LABS: ALBUMIN 3.5 gm/dl (3.4-5.0); BLOOD UREA NITROGEN 15 mg/dl (7-18); CALCIUM 9.3 mg/dl (8.5-10.1); CARBON DIOXIDE 28 mmol/L (21-32); CREATININE 1.01 mg/dl (0.60-1.40); GLUCOSE 63 mg/dl (70-99); POTASSIUM 3.8 mmol/L (3.5-5.1); SODIUM 136 mmol/L (136-145)
[2017-09-27 10:10] LABS: PHOSPHORUS 3.5 mg/dl (2.5-4.9)
== END | disposition home or self-care (01) ==
LOC: C.LAB1850 08:33
PROVIDERS: ATTEND Internal Medicine Nephrology
DX: N05.1 Unspecified nephritic syndrome with focal and segmental glomerular lesions (principal); R94.6 Abnormal results of thyroid function studies

== ENCOUNTER → 2017-10-11 | Outpatient (CLI) | payer BC ==
[~2017-10-11] MED LIST changes: +GABA-113 PO; +HYDR-4079 PO; +LISI1TAB3 PO; +PRED20TA2 PO
[2017-10-11 11:14] LABS: BASO % 0.3 %; BASO ABS # 0.03 K/uL (0-0.2); EOS % 1.1 %; HEMATOCRIT 41.2 % (42-52); HEMOGLOBIN 14.1 g/dL (14.0-18.0); IG# 0.11 K/uL (0.00-0.02); LYMPH % 36.6 %; LYMPH ABS # 3.48 K/uL (1.2-3.4); MEAN CELL VOLUME 92.4 fL (80-100); MEAN CORPUSCULAR HEMOGLOBIN 31.6 pg (25-34); MEAN CORPUSCULAR HGB CONC 34.2 g/dl (32-36); MEAN PLATELET VOLUME 9.3 fL (7.4-10.4); MONO % 9.6 %; MONO ABS # 0.91 K/uL (0.11-0.59); NEUT % 51.2 %; NEUT ABS # 4.88 K/uL (1.4-6.5); PLATELET COUNT 297 K/uL (130-400); RED CELL DISTRIBUTION WIDTH CV 12.8 % (11.5-14.5); RED CELL DISTRIBUTION WIDTH SD 43.1 fL (36.4-46.3); WHITE BLOOD COUNT 9.51 K/uL (4.8-10.8)
--- NOTE | 2017-11-22 08:04 | CODING QUERY MEDICAL NECESSITY ---
TREATMENT RENDERED WITHOUT A DIAGNOSIS To promote full compliance with coding requirements relating to patient care, physician participation is requested in all cases of medical insurance coder uncertainty. Please assist us with providing a diagnosis/symptom for the test(s) below: A diagnosis/symptom was not documented on your Order. A valid diagnosis/symptom is required to bill all insurances. Please remember that we are unable to code a diagnosis of rule out, probable, possible, questionable, or suspected. Tests that require a diagnosis: DOS: 10/11/17 * CBC W/ AUTO DIFF DIAGNOSIS: Provider Signature: Date: Thank you Gila Lott [employer] Once completed, please kindly fax back to [phone] For questions please call [phone]
== END | disposition home or self-care (01) ==
LOC: C.LABBC 08:33
PROVIDERS: ATTEND Physician Assistant
DX: N04.9 Nephrotic syndrome with unspecified morphologic changes (principal)

== ENCOUNTER → 2017-10-24 | Outpatient (CLI) | payer BC | END | disposition home or self-care (01) | LOC: C.LAB1850 08:03 | PROVIDERS: ATTEND Internal Medicine Nephrology | DX: N05.1 Unspecified nephritic syndrome with focal and segmental glomerular lesions (principal) ==

== ENCOUNTER → 2017-11-01 | Outpatient (CLI) | payer BC ==
[~2017-11-01] MED LIST changes: -GABA-113 PO; -HYDR-4079 PO
[2017-11-01 10:04] LABS: ALBUMIN 3.3 gm/dl (3.4-5.0); BLOOD UREA NITROGEN 27 mg/dl (7-18); CALCIUM 8.7 mg/dl (8.5-10.1); CARBON DIOXIDE 28 mmol/L (21-32); CREATININE 0.85 mg/dl (0.60-1.40); GLUCOSE 79 mg/dl (70-99); POTASSIUM 3.8 mmol/L (3.5-5.1); SODIUM 132 mmol/L (136-145)
[2017-11-01 10:05] LABS: PHOSPHORUS 3.1 mg/dl (2.5-4.9)
== END | disposition home or self-care (01) ==
LOC: C.LAB1850 08:30
PROVIDERS: ATTEND Internal Medicine Nephrology
DX: N05.1 Unspecified nephritic syndrome with focal and segmental glomerular lesions (principal)

== ENCOUNTER → 2018-02-14 | Outpatient (CLI) | payer BC ==
[~2018-02-14] MED LIST changes: +LISI-863 PO; -LISI1TAB3 PO
[2018-02-14 09:45] LABS: ALBUMIN 3.7 gm/dl (3.4-5.0); BLOOD UREA NITROGEN 18 mg/dl (7-18); CALCIUM 9.1 mg/dl (8.5-10.1); CARBON DIOXIDE 27 mmol/L (21-32); CREATININE 1.02 mg/dl (0.60-1.40); GLUCOSE 96 mg/dl (70-99); PHOSPHORUS 3.1 mg/dl (2.5-4.9); POTASSIUM 4.3 mmol/L (3.5-5.1); SODIUM 137 mmol/L (136-145)
== END | disposition home or self-care (01) ==
LOC: C.LAB1850 08:15
PROVIDERS: ATTEND Internal Medicine Nephrology
DX: N05.1 Unspecified nephritic syndrome with focal and segmental glomerular lesions (principal)

== ENCOUNTER 2024-05-28 14:52 | Inpatient (IN) ==
--- NOTE | 2024-05-28 15:25 | Emergency Department Note ---
Impression & Plan Depression with suicidal ideation, Anxiety ED Provider Note NAME: JOSE BECK AGE: 68 SEX: M : 1955 ARRIVES VIA: Walk-In INFORMANT: Patient, ED PROVIDER(S): David Bermudez DO CHIEF COMPLAINT: Anxiety HPI: The patient is a 68-year-old male who presented to the emergency department because of issues with anxiety and depression. He started having the symptoms in January of this year. The patient was having issues with anxiety and now thoughts of suicidal ideation. The patient was seen by his primary care physician and sent to the emergency department for further evaluation. His significant other did present with him and apparently she is been trying to get help form as an outpatient without relief of his symptoms. The patient started taking an old prescription of an antidepressant. Is not been helping. He denies having any medical issues but he has noticed some headaches recently. ROS: See above HPI for pertinent positives & negatives. A total of 10 systems reviewed and were otherwise negative. PAST MEDICAL HISTORY: See Below PAST SURGICAL HISTORY: See Below FAMILY HISTORY: See Below SOCIAL HISTORY: See Below HOME MEDICATIONS: See Below ALLERGIES: See Below VITALS: See Below PHYSICAL EXAMINATION: GENERAL: The patient is awake and alert. The patient is somewhat anxious appearing. EYES: The conjunctivae are clear. The pupils are round and reactive. EARS, NOSE, MOUTH AND THROAT: The nose is without any evidence of any deformity. NECK: The neck is nontender and supple. RESPIRATORY: Normal respiratory effort is noted there is no evidence of wheezing rhonchi or rales CARDIOVASCULAR: Regular rate and rhythm noted there no murmurs rubs or gallops normal S1 normal S2. GASTROINTESTINAL: The abdomen is soft. Abdomen is nontender. MUSCULOSKELETAL/EXTREMITIES: There is no evidence of gross deformity full range of motion is noted in the hips and shoulders. SKIN: There is no obvious evidence of any rash. There are no petechiae, pallor or cyanosis noted. NEUROLOGIC: Patient is awake alert and oriented x3. Gait was steady. PSYCH: The patient is awake and alert. He is somewhat anxious appearing. His affect is flat. He is currently admitting to suicidal ideation. MEDICAL DECISION MAKING: The patient is a 68-year-old male who presented to the emergency department for an evaluation of anxiety and depression. The patient's had worsening symptoms ever since January. He has many stressors right now. The patient was seen at his family doctor's office and referred to the emergency department for further evaluation. The patient was medically cleared in the emergency department. The patient was evaluated by the mental health rn case management. He was to be a good candidate for inpatient management. He is being evaluated by 3 S. at this time. The patient was treated with Ativan in the emergency department. Triage Nursing notes reviewed. Prior medical records reviewed Vital Signs: reviewed and remarkable for no significant abnormalities Differential diagnosis: Mood disorder, infection, hypoglycemia, electrolyte abnormalities, cardiac sources, intracerebral event, toxicologic, trauma, neurologic, as well as other pathologies. ER treatment provided: See below Diagnostics interpreted by me: ECG: EKG was obtained in the emergency department. My interpretation is sinus bradycardia at 55 bpm. Right bundle-branch block pattern was noted. There was no PVCs. This was compared to a tracing from November 01, 2021. No changes were noted. Laboratory studies: As stated above and show below. Imaging studies: See below. Consultation(s): I discussed this case with the emergency department mental health rn case management. The patient was signed out to Dr. Zepeda at change of shift. Please see his note for continuation of care and further disposition. Past Med/Surg History Problem List (Updated 05/28/24 @ 18:59 by David Bermudez DO) Anxiety (Acute) Depression with suicidal ideation (Acute) Suicidal ideations Depression Hyperlipidemia Former smoker Health care maintenance Skin lesion of face Arthritis Spondylosis, lumbosacral Right bundle branch block Lumbar radiculopathy Late onset dysthymia Internal hemorrhoids Hyperplastic colon polyp Herniated nucleus pulposus, L4-5 Focal segmental glomerulosclerosis Bradycardia BPH (benign prostatic hyperplasia) Medical History Skin infection Nausea and vomiting after administration of anesthetic agent AFTER KIDNEY BX History of back problems Hepatitis Skin abrasion Left inguinal hernia History of elevated prostate specific antigen (PSA) Surgical History S/P left inguinal hernia repair (11/24/21) Left Inguinal Hernia Open Repair with Mesh(Left) - German Epstein DO S/P tonsillectomy Status post biopsy of kidney S/P colonoscopy S/P ORIF (open reduction internal fixation) fracture LEFT LEG H/O inguinal hernia repair RIH repair 2001 History of surgery left leg History of neck surgery 1999-[id number] S/P foot surgery, left Family History Family/Other No pertinent family history Father Brain tumor Cancer Denies family history of Ovarian cancer Prostate cancer Myocardial infarction Breast cancer Colorectal cancer Social History Smoking Status: Never smoker Tobacco Type: Cigarettes Age Started Using Tobacco: 19; Age Quit Using Tobacco: 33; packs per day: 1; Second Hand Exposure: No; Do You Dip or Chew Tobacco: No; Hx Alcohol Use: No Hx Substance Use: No Preferred Language: Indonesian Communication Ability: Effective Visual Impairment: No Limitations Hearing Ability: Normal City Editor Required: No Beliefs That Will Affect Care: None marital status: Current Living Situation: Spouse current occupational status: employed 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 Feels Safe at Home: Yes Childhood Exposure to Second-Hand Smoke: Yes Dental Care, Regularly: Yes Physical Activity Frequency: 3-4 Times per Week Seatbelt Use: always Sunscreen Use: No Gender Identity: Male Assistive Devices: Glasses Allergies Allergies Allergy/AdvReac Type Severity Reaction Status Date / Time No Known Drug Allergies Allergy Verified 05/28/24 14:05 Home Meds Home Medications Medication Instructions Recorded Confirmed melatonin 5 mg capsule 10 mg PO HS 11/09/20 05/28/24 amino ac-vit [id number] 1 tab PO QAM 11/22/21 05/28/24 tablet cholecalciferol (vitamin D3) 50 125 mcg PO QAM 11/22/21 05/28/24 mcg (2,000 unit) capsule magnesium 200 mg tablet 400 mg PO QAM 11/22/21 05/28/24 Previous Rx's Medication Instructions Recorded lisinopril 5 mg tablet 5 mg PO HS #90 tabs 04/25/23 sertraline 50 mg tablet 75 mg (1.5 x 50 mg) PO HS #135 tabs 10/16/23 Results & Data (ED) Vital Signs Vital Signs - 24 hr 05/28/24 14:56 05/28/24 17:42 Temperature 36.6 C 36.7 C Temperature Source Temporal Artery Scan Oral Pulse Rate 61 Pulse Rate [Right Finger] 60 Respiratory Rate 18 18 Respiratory Effort / Characteristics Non-Labored Spontaneous Non-Labored Spontaneous Respiratory Depth Normal Normal Respiratory Pattern Regular Regular Blood Pressure 151/90 H Blood Pressure [Left Arm] 139/87 Blood Pressure Mean 110 Blood Pressure Mean [Left Arm] 104 Pulse Oximetry 99 97 Oxygen Delivery Method Room Air Room Air Sepsis Recent Fever Within 48 Hours No Sepsis New/Unexplained Change in Mental Status N/A Sepsis Action Taken by Nursing No Action Required Home Medications Current Medication List: was personally reviewed by me Laboratory Data Attestation: I reviewed the patient's lab results. 05/28/24 15:15 05/28/24 15:15 Lab Results 05/28/24 Range/Units 15:15 WBC 9.76 (4.8-10.8) K/ul RBC 5.49 (4.70-6.10) M/uL Hgb 17.1 (14.0-18.0) g/dl Hct 49.2 (42.0-52.0) % MCV 89.6 (80.0-100.0) fL MCH 31.1 (25.0-34.0) pg MCHC 34.8 (32.0-36.0) g/dL RDW Std Deviation 41.6 (36.4-46.3) fL RDW Coeff of [place] 12.7 (11.5-14.5) % Plt Count 323 (130-400) K/uL MPV 9.1 L (9.4-12.4) fL Immature Gran % (Auto) 0.5 % Neut % (Auto) 70.4 % Lymph % (Auto) 20.8 % [place] % (Auto) 7.4 % Eos % (Auto) 0.4 % Baso % (Auto) 0.5 % Neut # (Auto) 6.87 H (1.40-6.50) K/uL Lymph # (Auto) 2.03 (1.20-3.40) K/uL [place] # (Auto) 0.72 H (0.11-0.59) K/uL Eos # (Auto) 0.04 (0.00-0.50) K/uL Baso # (Auto) 0.05 (0.00-0.20) K/uL Immature Gran # (Auto) 0.05 (0.01-0.20) K/uL Sodium 138 (136-145) mmol/L Potassium 4.2 (3.5-5.1) mmol/L Chloride 101 (98-107) mmol/L Carbon Dioxide 29 (21-32) mmol/L Anion Gap 8 (3-11) BUN 11 (6-23) mg/dl Creatinine 0.90 (0.6-1.4) mg/dl Est Cr Clr Drug Dosing 79.6 ml/min eGFR 93.61 BUN/Creatinine Ratio 12.2 (10-20) Glucose 105 H (70-99(Fasting)) mg/dl Calcium 10.3 (8.6-10.3) mg/dl Total Bilirubin 0.7 (0.2-1.0) mg/dl AST 24 (13-39) U/L ALT 26 (7-52) U/L Alkaline Phosphatase 56 (34-104) U/L Total Protein 7.4 (6.0-8.3) gm/dl Albumin 5.0 (3.4-5.0) gm/dl Globulin 2.4 L (2.5-4.0) gm/dl Albumin/Globulin Ratio 2.1 H (0.9-2) TSH 1.971 (0.300-4.500) uIu/ml Urine Color Yellow Urine Appearance Clear (Clear) Urine pH 7.0 (4.5-7.5) Ur Specific [place] 1.005 (1.000-1.030) Urine Protein Negative (Negative) Urine Glucose (UA) Negative (Negative) Urine Ketones Negative (Negative) Urine Blood Negative (Negative) Urine Nitrite Negative (Negative) Urine Bilirubin Negative (Negative) Urine Urobilinogen Negative (Negative) Ur Leukocyte Esterase Negative (Negative) Salicylates < 3.0 L (3.0-30) mg/dl Urine Opiates Screen Neg (Neg) Ur Methadone, Qual Neg (Neg) Urine Fentanyl Screen Neg (Neg) Acetaminophen < 3 L (10-30) ug/ml Urine Barbiturates Neg (Neg) Ur Phencyclidine (PCP) Neg (Neg) U Amphetamin/Meth Scrn Neg (Neg) MDMA (Ecstasy) Screen Neg (Neg) U Benzodiazepines Scrn Neg (Neg) Ur Cocaine Metabolite Neg (Neg) U Marijuana (THC) Screen Neg (Neg) Ethyl Alcohol mg/dL < 10.0 (<10.0) mg/dl SARS-CoV-2, RNA, NAAT NEGATIVE (NEGATIVE) Administered Medications Discontinued Medications Lorazepam (Lorazepam 1 Mg Tab) 1 mg PO NOW STA Stop: 05/28/24 15:22 Last Admin: 05/28/24 15:26 Dose: 1 mg Documented By: Discharge Plan Visit Data Chief Complaint: Mental Health Evaluation Stated Complaint: SUICIDAL THOUGHTS ED Provider: David Bermudez Discharge Problem: Depression with suicidal ideation, Anxiety Patient Disposition: Still a Patient Forms Stand Alone Forms: Community Health, Suicide Prevention Resources Prescriptions Prescriptions: No Action lisinopril 5 mg tablet 5 mg PO HS Qty: 90 3RF Hold Instructions: Home Medication placed on hold at Doctor's office sertraline 50 mg tablet 75 mg PO HS Qty: 135 1RF melatonin 5 mg capsule 10 mg PO HS magnesium 200 mg Tablet 400 mg PO QAM amino ac-vit [id number] Tablet 1 tab PO QAM cholecalciferol (vitamin D3) 50 mcg (2,000 unit) capsule 125 mcg PO QAM Referrals Referrals: Jay Helms MD [Primary Care Provider] -
[2024-05-28] MEDS: LORazepam 1 MG TAB PO STA (15:26)
[2024-05-28 15:27] LABS: Appearance Urine Clear (Clear); Bilirubin Urine Negative (Negative); Blood Urine Negative (Negative); Color Urine Yellow; Glucose Urine UA Negative (Negative); Ketones Urine Negative (Negative); Leukocyte Esterase Urine Negative (Negative); Nitrite Urine Negative (Negative); Protein Urine Negative (Negative); Specific Gravity Urine 1.005 (1.000-1.030); Urobilinogen Urine Negative (Negative)
[2024-05-28 15:32] LABS: Basophils # (auto) 0.05 K/uL (0.00-0.20); Basophils % (auto) 0.5 %; Eosinophils # (auto) 0.04 K/uL (0.00-0.50); Eosinophils % (auto) 0.4 %; Hematocrit (blood only) 49.2 % (42.0-52.0); Hemoglobin 17.1 g/dl (14.0-18.0); Immature Granulocytes # (auto) 0.05 K/uL (0.01-0.20); Immature Granulocytes % (auto) 0.5 %; Lymphocytes # (auto) 2.03 K/uL (1.20-3.40); Lymphocytes % (auto) 20.8 %; Mean Corpuscular Hemoglobin 31.1 pg (25.0-34.0); Mean Corpuscular Hgb Conc 34.8 g/dL (32.0-36.0); Mean Corpuscular Volume 89.6 fL (80.0-100.0); Mean Platelet Volume 9.1 fL (9.4-12.4); Monocytes # (auto) 0.72 K/uL (0.11-0.59); Monocytes % (auto) 7.4 %; Neutrophils # (auto) 6.87 K/uL (1.40-6.50); Neutrophils % (auto) 70.4 %; Platelet Count 323 K/uL (130-400); RDW Coefficient of Variation 12.7 % (11.5-14.5); RDW Standard Deviation 41.6 fL (36.4-46.3); Red Blood Count 5.49 M/uL (4.70-6.10); White Blood Count 9.76 K/ul (4.8-10.8)
[2024-05-28 15:45] LABS: Bilirubin,Total 0.7 mg/dl (0.2-1.0); Calcium 10.3 mg/dl (8.6-10.3); Potassium 4.2 mmol/L (3.5-5.1)
[2024-05-28 15:51] LABS: Albumin Globulin Ratio 2.1 (0.9-2); BUN Creatinine Ratio 12.2 (10-20); Creatinine Clr Calc Pharmacy 79.6 ml/min; Globulin 2.4 gm/dl (2.5-4.0); Total Protein 7.4 gm/dl (6.0-8.3)
[2024-05-28 15:53] LABS: Acetaminophen < 3 ug/ml (10-30); Salicylate < 3.0 mg/dl (3.0-30)
[2024-05-28 16:03] LABS: Amphetamines+Metham, Urine Neg (Neg); Barbiturates, Urine Neg (Neg); Benzodiazepine, Urine Neg (Neg); Cocaine, Urine Neg (Neg); Fentanyl, Urine Neg (Neg); MDMA (Ecstacy), Urine Neg (Neg); Marijuana, Urine Neg (Neg); Methadone, Urine Neg (Neg); Opiate, Urine Neg (Neg); Phencyclidine, Urine Neg (Neg)
[2024-05-28 16:05] LABS: Thyroid Stimulating Hormone 1.971 uIu/ml (0.300-4.500)
--- NOTE | 2024-05-28 19:26 | Emergency Department Note ---
ED Visit Note I assumed care at the change of shift. The patient was seeking voluntary psychiatric admission for suicidal ideation. He was felt medically clear. A bed search was underway. The patient was accepted by our psychiatric services, [facility]. The appropriate paperwork was completed and signed. He will be admitted to the psychiatric services voluntarily. .
[2024-05-28] MEDS ORDERED: ALUMINUM/MAGNESIUM SUSP 30 ML UDC PO PRN (20:12)
[2024-05-28] MEDS ORDERED: ACETAMINOPHEN 325 MG TAB PO PRN (20:12)
[2024-05-28] MEDS ORDERED: hydrOXYzine HCl 25 MG TAB PO PRN (20:12)
[2024-05-28] MEDS ORDERED: SODIUM CHLORIDE 0.65% NA SOLN 45 ML (OCEAN) PRN (20:12)
[2024-05-28] MEDS ORDERED: MAGNESIUM HYDROXIDE SUSP 30 ML UDC PO PRN (20:12)
[2024-05-28] MEDS ORDERED: BISMUTH SUBSALICYLATE 262 MG CHEW PO PRN (20:12)
[2024-05-28] MEDS ORDERED: LORazepam 0.5 MG TAB PO PRN (21:02)
[2024-05-28 21:28] VITALS: O2SAT 98
[2024-05-28] MEDS: MIRTAZAPINE TAB 15 MG TAB PO SCH (21:30)
[2024-05-29 06:19] VITALS: RESP 16
--- NOTE | 2024-05-29 08:39 | History & Physical ---
Date of Service May 29, 2024 Impression / Recommendations Impression SADIQ BECK is a 68-year-old man who currently lives in [place] with his and adult son, has a history of depression, and was admitted on 05/28/24 20:39 on a 201 voluntary commitment for SI with plans and lack of functioning with significant weight loss, poor sleep and inability to work. Diagnostically consistent with major depressive disorder with psychotic features with anxious distress and generalized anxiety disorder with panic attacks. Given recent financial issues/scam and his report of increased difficulty knowing what to do at his job would also wonder about possibility for new onset cognitive disorder but will need to address significant recent sleep depravation and see some lessening of acute mood symptoms before this can be more accurately assessed. Concern for possible B12 deficiency leading to new possible peripheral neuropathy given his report of poor appetite and 20 lbs of weight loss over recent months so will get labwork to assess this possibility and involve hospitalist consult if needed. If further neurological symptoms emerge or increased concern for cognitive changes will have low threshold for brain imaging. Target symptoms identified as: depression/hopelessness/SI, anxiety, poor sleep, poor appetite. Discussed medication treatment options in detail. Discussed risks, benefits and alternatives. Patient would like to start and consented to sertraline for dep ression, olanzapine for depression with psychotic features and insomnia, ativan prn for panic attacks, gabapentin prn for foot tingling and off-label for anxiety. Reviewed side effects including but not limited to: GI, FALK, sexual side effects with sertraline; movement (TD, NMS), cardiac (QTc prolongation), and metabolic (stroke, insulin resistance) and necessity for fasting lipid and glucose labwork and AIMS done with score of 0 with olanzapine; addiction potential/cognitive issues/increased fall risk with ativan; dizziness, liver changes with gabapentin. Overall I spent a total of 75 minutes for this admission including review of chart records, review of labwork, direct evaluation of the patient, counseling the patient, ordering medication, risk assessment, discussion with the psychiat jessica liason RN and documentation in the electronic health record. (1) Major depressive disorder, recurrent, severe with psychotic features: (2) Generalized anxiety disorder with panic attacks: (3) Peripheral neuropathy: (4) Suicidal ideations: (5) Weight loss, unintentional: (6) Insomnia: Plan 05/29/2024: The patient was admitted to the [facility] ([facility]) on q15 min checks (behavioral with suicide precautions) for safety. The patient will participate in group, recreational, and milieu therapies and will be offered additional individual and family sessions as clinically appropriate. -Medications: * Start sertraline 50mg daily * Start multivitamin daily * Start olanzapine 5mg HS and 5mg HS prn for insomnia * Start gabapentin 100mg TID po prn for nerve pain * Start ativan 1mg BID prn for panic attacks * Discontinue mirtazapine as initial ineffective for insomnia, could retrial as symptom burden lessens in coming days/weeks * Consider option for clonidine if overnight panic awakenings persist -Labwork: * Fasting lipid panel in AM * HbA1c * Vit B12 (especially given recent weight loss, poor appetite and new possible peripheral neuropathy) * Vit D Inventory Assets Strengths: supportive relationships, willing to get treatment Needs: safety and stabilization, medication adjustment, additional coping skills, increased outpatient services Suicide Risk Level Suicide Risk Level: High-Moderate (q15 min suicide checks) (severe depression with SI with plan, but feels safe in the hospital and feels able to ask for supp ort ) Risk Factors Assessment Male: Yes : Yes Do You Have Access To A Gun?: No (his family "hid them all") Health Problems: No Mental Health Diagnoses: Yes Substance Use Disorders: No Previous Attempt: Yes Family History of Suicide: No Previous Psychiatric Hospitalization: No Hopelessness: Yes Protective Factors Assessment : Yes Employed: No Stable Relationships: Yes Supportive Family: Yes Good Rapport with Provider: Yes (with PCP) Psychiatric History Identifying Data SADIQ BECK is a 68-year-old man who currently lives in [place] with his and adult son, has a history of depression, and was admitted on 05/28/24 20:39 on a 201 voluntary commitment for SI with plans and lack of functioning wi th significant weight loss, poor sleep and inability to work. Chief Complaint "It's overwhelming and I have a total sense of hopelessness and don't see a way out to support my family and keep the house". History of Present Illness Sadiq presents for psychiatric admission for worsening depression, anxiety, insomnia, lack of functioning and SI with plan of jumping in front of a truck or stabbing himself in the heart with a knife in the context of multiple psychosocial stressors including financial scam in January, intense work schedule, and lack of sleep. He underwent significant financial losses of almost $900,000 -1.2 million in January, which set off significant mood symptoms, initially anxiety which has spiraled into depression. He feels immense guilt and shame that he can't support his family. He also reports ongoing harassment from scammers via text messages, contributing to his anxiety. He describes over the last three weeks feeling like he couldn't "remember how to cook" so recently put in notice to leave his job. Discussed possibility of any memory issues or changes in cognitive ability, he endorses struggling to keep up at work and not being able to come up with new recipes but otherwise denies any significant cognitive changes or decline. He denies any connection between possible cognitive decline and the financial scam. He endorses depressive symptoms including "shame, guilt", exhausted but cannot sleep (feels he only slept a few hours last night), tearfulness, anhedonia (hiking, trail running, biking, woodworking but now has no interest in any of these things), decreased motivation, helplessness, hopelessness, decreased appetite (thinks he has lost about 20lbs over 4 months), and decreased sleep only about 1-2 hours per night (difficulty falling asleep and frequent awakenings, "jolts" awake and "start thinking of all the mistakes I've made". SI has been occurring since January, intensified this last week to the point of wanting to walk in front of [place] [address] or using a knife to "jam it into my heart". He also endorses symptoms of anxiety that started initially including generalized worries, shakiness, easily overwhelmed and panic attacks (typically at least once per day). The scammers continue to text and harass him. Reports recently unplugging the TV because "I get no sarah from watching it". He reports his house and water features outside "aren't mine anymore because I cannot afford them". Reports since January he's had tingling in his feet that feels like "neuropathy". Asked more about this, he reflects this could have come after poor nutritional intake but he's not sure. Denies any other neurological symptoms. He is not currently prescribed any psychiatric medications. Two days ago tried one dose of an old script of sertraline 50mg pill. Psychiatric ROS notable for no current nor history of symptoms of monisha, PTSD, OCD nor eating disorder. Possible recent symptoms of paranoid delusions per collateral history provided to ED CM. Additional collateral per ED CM note from 05/28/2024: "Met with patient and his Deloris to complete MH evaluation. Patient reports feeling relaxed at this time as he was given a Lorazepam. Patient's states this was the calmest she has seen him in 4 months.Patient lives with his and grown son. Patient is not prescribed in any MH medication. He does not have any outpatient providers. Patient has never had any inpatient MH treatment. Patient reports one suicide attempt when he was in college where he slit his wrists. He began outpatient therapy after this attempt, but never received inpatient treatment. Patient reports a poor appetite and has lost a significant amount of weight. He sleeps no more than two hours every night as he is restless, cannot fall asleep, cannot stay asleep and when he does sleep he yells out and thrashes in his sleep. Patient reports panic attacks daily, especially when talking about his current situation. He states his anxiety is at a constant 10. Patient becomes SOB and has chest pains. He denies any manic symptoms. Patient expresses some paranoia and feels he may be seeing things that are not there. Patient's states he obsesses over certain things such as the solar panels in their home as he feels they are the only thing in his life that he has control over at this time. Patient is not future oriented. He states he was at one point, but does not see a future of any sort for himself. Patient denies SIB, but will hit himself in the head when anxious. He reports being unable to be still and is always restless or pacing. No D/A use. No nicotine use. Patient denies aggression or violence. He has no access to any guns as his and son hid the guns after patient mentioned thoughts of suicide. 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 Patient reports feeling his life is out of control and the only way out is to commit suicide. Patient reports being unemployed currently as he quit his job in January due to it being too overwhelming for him. He states he has been suicidal since January after being scammed out of 1.2 million dollars involving a [employer] scam where he bought bitcoin, traded it for short term contracts, and was then fined for Arbitrage trading.. His states he has never been involved in anything like this before, that this is not of his character, but he was then fined money for the arbitrage trading, refinanced his home, and fined more money. He has since reached out to the [facility] Police ([employer]), [employer], FBI and the [employer] office. Patient feels defeated and as if he is never going to come out of this. Patient reports that he felt suicidal before coming to the ED, but was "not really" feeling suicidal at this time due to medication, but does admit to having several plans. Patient states his and son can remove the weapons from the home, but this would not stop him from walking in front of a semi-truck as he has thought of doing it several times. Patient's states he has been paranoid and has unplugged their waterfall in their backyard as he does not feel it is his anymore, and has unplugged all of their TV's as he feels the TV's will somehow link him to the individual that scammed him in the first place. CM talked with patient about inpatient MH treatment, patient and agree that this is in his best interest at this time." Past Psychiatric History Current Psychiatric Diagnosis: Depression, Anxiety Outpatient Services: none, did some therapy through work from [id number] Previous Psych Admissions: n/a Do You Have Access To A Gun?: No (his family "hid them all") History of Previous Suicide Attempt: Yes Describe Attempts in the Past: in college via cutting wrist Past Medication Trials: sertraline 25mg in [id number] (took this for 5 years for depression) tried a lot of supplements over the years Past Head Trauma/Neuro History History of Concussion/Seizure: Yes hx concussions Allergies Allergy/AdvReac Type Severity Reaction Status Date / Time No Known Drug Allergies Allergy Verified 05/28/24 14:05 Family History Family History of: None Alcohol History Hx of Alcohol Use Over the Past 12 Months: No AUDIT Total Score: 0 Smoking Use Have You Smoked or Used Tobacco Products in the Last 30 Days: No Smoking Status: Never smoker Substance History Hx of Prescription Med Misuse Over the Past 12 Months: No Hx of Over the Counter Med Misuse Over the Past 12 Months: No Hx of Inhalent Misuse Over the Past 12 Months: No Hx of Organic Substance Use Over the Past 12 Months: No Hx of Illegal Substances/Street Drug Use Over Past 12 Months: No Problems as a Result of Past Substance Use: None Identified Personal History Living Arrangements: Home Highest Grade Completed: Vocational Training (associates degree) 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, 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) Marital Status: Number Of Children: one son Beliefs That Will Affect Care: None Current Legal Problems: No Hx Legal Problems: No Patient History Medical History (Updated 05/29/24 @ 12:36 by Shy Aj MD) Nephrotic syndrome Skin infection Nausea and vomiting after administration of anesthetic agent AFTER KIDNEY BX History of back problems Hepatitis Skin abrasion Left inguinal hernia History of elevated prostate specific antigen (PSA) Surgical History S/P left inguinal hernia repair (11/24/21) Left Inguinal Hernia Open Repair with Mesh(Left) - German Epstein, DO S/P tonsillectomy Status post biopsy of kidney S/P colonoscopy S/P ORIF (open reduction internal fixation) fracture LEFT LEG H/O inguinal hernia repair [facility] repair 2001 History of surgery left leg History of neck surgery 1999-[id number] S/P foot surgery, left Family History Family/Other No pertinent family history Father Brain tumor Cancer Denies family history of Ovarian cancer Prostate cancer Myocardial infarction Breast cancer Colorectal cancer Social History Smoking Status: Never smoker Tobacco Type: Cigarettes Age Started Using Tobacco: 19; Age Quit Using Tobacco: 33; packs per day: 1; Second Hand Exposure: No; Do You Dip or Chew Tobacco: No; Hx Alcohol Use: No Hx Substance Use: No Preferred Language: Nauruan Communication Ability: Effective Visual Impairment: No Limitations Hearing Ability: Normal Compensation And Benefits Administrator Required: No Beliefs That Will Affect Care: None marital status: Current Living Situation: Spouse current occupational status: employed 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 Feels Safe at Home: Yes Childhood Exposure to Second-Hand Smoke: Yes Dental Care, Regularly: Yes Physical Activity Frequency: 3-4 Times per Week Seatbelt Use: always Sunscreen Use: No Gender Identity: Male Assistive Devices: Glasses Review of Systems Review of Systems: All systems reviewed & are unremarkable except as noted in HPI & below (my feet are always tingling) Physical Exam Psychiatric: Orientation: alert and oriented x 3 Apperance: appropriately dressed and appropriately groomed Eye Contact: good eye contact Motor Behavior: no abnormal motor movements Speech: normal rate/rhythm/volume of speech Affect: + depressed affect, + anxious affect and + constricted affect Mood: + depressed mood and + anxious mood Thought Process: goal directed thought process Thought Content: reality based without delusions Suicidal Thoughts: denies suicidal thoughts (intermittent), denies suicidal plan and denies suicidal intent Homicidal Thoughts: denies homicidal thoughts Hallucinations: no auditory hallucinations and no visual hallucinations Cognition: recent memory grossly intact, remote memory grossly intact, attention grossly intact and language grossly intact Estimated Intelligence: consistent with education level Insight: + limited insight Judgment: + limited judgement Vital Signs (Past 24 Hours): Last Vital Signs Temp 36.4 C 05/29/24 06:00 Pulse 73 05/29/24 06:18 Resp 16 05/29/24 06:00 BP 120/80 05/29/24 06:18 Pulse Ox 98 05/28/24 21:09 O2 Del Method Room Air 05/28/24 21:09 Exam Statement: A physical exam was performed in the ED by Dr. Bermudez for the purposes of medical clearance. I accept that physical as correct and adequate for the purposes of the inpatient physical exam. Results & Data ([facility]) Laboratory Results Laboratory Results - last 24 hr 05/28/24 15:15 WBC 9.76 RBC 5.49 Hgb 17.1 Hct 49.2 MCV 89.6 MCH 31.1 MCHC 34.8 RDW Std Deviation 41.6 RDW Coeff of Bia 12.7 Plt Count 323 MPV 9.1 L Immature Gran % (Auto) 0.5 Neut % (Auto) 70.4 Lymph % (Auto) 20.8 Sully % (Auto) 7.4 Eos % (Auto) 0.4 Baso % (Auto) 0.5 Neut # (Auto) 6.87 H Lymph # (Auto) 2.03 Sully # (Auto) 0.72 H Eos # (Auto) 0.04 Baso # (Auto) 0.05 Immature Gran # (Auto) 0.05 Sodium 138 Potassium 4.2 Chloride 101 Carbon Dioxide 29 Anion Gap 8 BUN 11 Creatinine 0.90 Est Cr Clr Drug Dosing 79.6 eGFR 93.61 BUN/Creatinine Ratio 12.2 Glucose 105 H Calcium 10.3 Total Bilirubin 0.7 AST 24 ALT 26 Alkaline Phosphatase 56 Total Protein 7.4 Albumin 5.0 Globulin 2.4 L Albumin/Globulin Ratio 2.1 H TSH 1.971 Urine Color Yellow Urine Appearance Clear Urine pH 7.0 Ur Specific Carson 1.005 Urine Protein Negative Urine Glucose (UA) Negative Urine Ketones Negative Urine Blood Negative Urine Nitrite Negative Urine Bilirubin Negative Urine Urobilinogen Negative Ur Leukocyte Esterase Negative Salicylates < 3.0 L Urine Opiates Screen Neg Ur Methadone, Qual Neg Urine Fentanyl Screen Neg Acetaminophen < 3 L Urine Barbiturates Neg Ur Phencyclidine (PCP) Neg U Amphetamin/Meth Scrn Neg MDMA (Ecstasy) Screen Neg U Benzodiazepines Scrn Neg Ur Cocaine Metabolite Neg U Marijuana (THC) Screen Neg Ethyl Alcohol mg/dL < 10.0 SARS-CoV-2, RNA, NAAT NEGATIVE Current Inpatient Medications Current Inpatient Medications: Current Inpatient Medications Acetaminophen (Acetaminophen 325 Mg Tab) 650 mg PO Q4H PRN PRN Reason: Headache or Minor Fever Stop: 06/27/24 20:11 Al Hydrox/Mg Hydrox/Simethicone (Aluminum/Magnesium Susp 30 Ml Udc) 30 ml PO Q4H PRN PRN Reason: GI Upset Stop: 06/27/24 20:11 Bismuth Subsalicylate (Bismuth Subsalicylate 262 Mg Chew) 2 tab PO Q30M PRN PRN Reason: Loose Stool/Diarrhea Stop: 06/27/24 20:11 Hydroxyzine HCl (Hydroxyzine Hcl 25 Mg Tab) 50 mg PO HSZ PRN PRN Reason: Insomnia Stop: 06/27/24 20:11 Hydroxyzine HCl (Hydroxyzine Hcl 25 Mg Tab) 25 mg PO Q4H PRN PRN Reason: Anxiety Stop: 06/27/24 20:11 Lorazepam (Lorazepam 0.5 Mg Tab) 0.5 mg PO BID PRN PRN Reason: Anxiety/Agitation Stop: 06/27/24 21:01 Magnesium Hydroxide (Magnesium Hydroxide Susp 30 Ml Udc) 30 ml PO DAILY PRN PRN Reason: Constipation Stop: 06/27/24 20:11 Mirtazapine (Mirtazapine Tab 15 Mg Tab) 15 mg PO HS OBI Stop: 06/27/24 21:59 Last Admin: 05/28/24 21:30 Dose: 15 mg Sodium Chloride (Sodium Chloride 0.65% Na Soln 45 Ml (Grenelefe)) 1 - 2 sprays NA PRN PRN PRN Reason: Nasal Dryness/Congestion Stop: 06/27/24 20:11
[2024-05-29] MEDS ORDERED: LORazepam 1 MG TAB PO PRN (10:54)
[2024-05-29] MEDS ORDERED: OLANZapine 5 MG TABLET PO PRN (10:55)
[2024-05-29] MEDS ORDERED: GABAPENTIN 100 MG CAP PO PRN (10:55)
[2024-05-29] MEDS: CEROVITE ADV FORMULA TAB PO SCH (11:50)
[2024-05-29] MEDS: SERTRALINE HCL 50 MG TABLET PO SCH (11:50)
--- NOTE | 2024-05-29 15:31 | Electrocardiogram Report ---
Test Reason : Blood Pressure : */* mmHG Vent. Rate : 55 BPM Atrial Rate : 55 BPM P-R Int : 152 ms QRS Dur : 138 ms QT Int : 444 ms P-R-T Axes : 49 20 25 degrees QTcB Int : 424 ms Sinus bradycardia Right bundle branch block Abnormal ECG When compared with ECG of 01-Nov-2021 14:09, No significant change was found Confirmed by Williams Zarate ([id number]) on 05/29/2024 3:31:18 PM Referred By: Confirmed By: Williams Zarate
[2024-05-29] MEDS: OLANZapine 5 MG TABLET PO SCH (21:36)
[2024-05-30 08:11] LABS: Chol HDL Ratio 3.8 (0-5)
[2024-05-30 10:42] LABS: Estimated Average Glucose 105 mg/dl; Hemoglobin A1C 5.3 % (4.5-5.6)
[2024-05-30] MEDS ORDERED: LORazepam 0.5 MG TAB PO PRN (12:31)
--- NOTE | 2024-05-30 14:35 | Psychiatric Progress Note ---
Date of Service May 30, 2024 Impression / Recommendations Impression JOSE BECK is a 68-year-old man who currently lives in [place] with his and adult son, has a history of depression, and was admitted on 05/28/24 20:39 on a 201 voluntary commitment for SI with plans and lack of functioning with significant weight loss, poor sleep and inability to work. Clarified patient's diagnosis today and consistent with a major depressive episode with anxious distress. Recent mood state accounts for sleep and appetite impairments, poor self-esteem, increased guilt, and possibly bilateral lower leg paresthesias. Does not meet criteria for PTSD. Does not appear psychotic and recent distrust for others likely anxious paranoia in the context of depression. Labs reviewed: B12, vitamin D, A1c within expected limits and triglycerides slightly high. Some concern for pre-existing generalized anxiety disorder prior to depression onset. Likely depressive episode was triggered with financial difficulties and concern for past depressive episode given past treatment with SSRI antidepressant. Plan to increase sertraline to 100 mg and await effect. Sleep and anxiety PRNs adjusted. Overall, I spent a total of 60 minutes with this case including review of chart records, nursing report, review of lab work, direct evaluation of the patient at bedside, counseling the patient, multidisciplinary team meeting, orders, and documentation in the electronic health record. (1) Suicidal ideations: (2) Weight loss, unintentional: (3) Insomnia: (4) Major depressive disorder, recurrent episode with anxious distress: (5) Generalized anxiety disorder: (6) Paresthesias: Plan 05/30/2024: Increase sertraline to 100 mg daily. Lorazepam 1 mg at night for sleep. Lorazepam 0.5 mg twice daily as needed for anxiety. 05/29/2024: The patient was admitted to the [facility] ([facility] mental health unit) on q15 min checks (behavioral with suicide precautions) for safety. The patient will participate in group, recreational, and milieu therapies and will be offered additional individual and family sessions as clinically appropriate. -Medications: * Start sertraline 50mg daily * Start multivitamin daily * Start olanzapine 5mg HS and 5mg HS prn for insomnia * Start gabapentin 100mg TID po prn for nerve pain * Start ativan 1mg BID prn for panic attacks * Discontinue mirtazapine as initial ineffective for insomnia, could retrial as symptom burden lessens in coming days/weeks * Consider option for clonidine if overnight panic awakenings persist -Labwork: * Fasting lipid panel in AM * HbA1c * Vit B12 (especially given recent weight loss, poor appetite and new possible peripheral neuropathy) * Vit D Inventory Assets Strengths: supportive relationships, willing to get treatment Needs: safety and stabilization, medication adjustment, additional coping skills, increased outpatient services Suicide Risk Level Suicide Risk Level: High-Moderate (q15 min suicide checks) (severe depression with SI with plan, but feels safe in the hospital and feels able to ask for support ) Risk Factors Assessment Male: Yes : Yes Do You Have Access To A Gun?: No (his family "hid them all") Health Problems: No Mental Health Diagnoses: Yes Substance Use Disorders: No Previous Attempt: Yes Family History of Suicide: No Previous Psychiatric Hospitalization: No Hopelessness: Yes Protective Factors Assessment : Yes Employed: No Stable Relationships: Yes Supportive Family: Yes Good Rapport with Provider: Yes (with PCP) Interval History Identifying Information JOSE BECK is a 68-year-old man who currently lives in [place] with his and adult son, has a history of depression, and was admitted on 05/28/24 20:39 on a 201 voluntary commitment for SI with plans and lack of functioning with significant weight loss, poor sleep and inability to work. Chief Complaint "Involved in [employer]" Review of Systems Sleep Information Total Hours of Sleep: 7 Sleep Comments: HS Remeron Meal Information Percent Meal Consumed - Breakfast: 80 Percent Meal Consumed - Lunch: 100 Percent Meal Consumed - Dinner: 100 Subjective Subjective Patient was seen & assessed and interval progress reviewed with treatment team nursing and social work Patient reports losing $900,000 on January 25 through her [email or web address]. 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 Complains of poor sleep since the initial incident. Refinanced his house to make money through [employer] and now is worried he will be unable to pay for mortgage. Reports endorsing to PCP that he was feeling suicidal and they recommended inpatient. Past treatment of Zoloft 25 mg from [id number] by PCP for increased anxiety at work. Patient complains of difficulty staying asleep, difficulty getting up from bed, feeling like a "failure" that started after the incident, memory impairments unable to remember recipes he usually cooks, often doubting himself and others. Denies taking any steps towards suicide attempt. Complains of appetite loss with significant weight loss. Reports new onset numbness and tingling in his lower legs bilaterally after the incident. Reports feeling safe at home and in the hospital. Denies auditory or visual hallucinations. Denies family history of psychiatric issues. Reports some physical anxiety when anxious. Denies hypervigilance, nightmares, flashbacks. Often questions the future and others' intentions. Reports this was occurring prior to recent depression and did not impact his sleep. Physical Exam Mental Examination Appearance: Disheveled Eye Contact: Fleeting Contact Motor Behavior: Unremarkable Speech: Soft Mood: Depressed, Anxious, Sad and Tearful Affect: Anxious, Dulled, Flat, Nervous and Sad Thought Process: Intact and Linear Thought Content: Intact Hallucinations: None Insight: Poor (to limited) Judgement: Poor (to limited) Vital Signs (Past 24 Hours) Last Vital Signs Temp 36.9 C 05/30/24 06:34 Pulse 76 05/30/24 06:34 Resp 16 05/30/24 06:34 BP 126/86 05/30/24 06:34 Pulse Ox 98 05/28/24 21:09 O2 Del Method Room Air 05/28/24 21:09 Results & Data ([facility]) Laboratory Results Laboratory Results - last 24 hr 05/30/24 07:31 Estimat Average Glucose 105 Hemoglobin A1c 5.3 Triglycerides 169 H Cholesterol 172 LDL Cholesterol, Calc 93 VLDL Cholesterol, Calc 34 H HDL Cholesterol 45 Cholesterol/HDL Ratio 3.8 Vitamin B12 458 25-OH Vitamin D Total 47.9 Current Inpatient Medications Current Inpatient Medications: Current Inpatient Medications Acetaminophen (Acetaminophen 325 Mg Tab) 650 mg PO Q4H PRN PRN Reason: Headache or Minor Fever Stop: 06/27/24 20:11 Al Hydrox/Mg Hydrox/Simethicone (Aluminum/Magnesium Susp 30 Ml Udc) 30 ml PO Q4H PRN PRN Reason: GI Upset Stop: 06/27/24 20:11 Bismuth Subsalicylate (Bismuth Subsalicylate 262 Mg Chew) 2 tab PO Q30M PRN PRN Reason: Loose Stool/Diarrhea Stop: 06/27/24 20:11 Gabapentin (Gabapentin 100 Mg Cap) 100 mg PO TID PRN PRN Reason: foot tingling Stop: 06/28/24 13:59 Hydroxyzine HCl (Hydroxyzine Hcl 25 Mg Tab) 50 mg PO HSZ PRN PRN Reason: Insomnia Stop: 06/27/24 20:11 Hydroxyzine HCl (Hydroxyzine Hcl 25 Mg Tab) 25 mg PO Q4H PRN PRN Reason: Anxiety Stop: 06/27/24 20:11 Lorazepam (Lorazepam 1 Mg Tab) 1 mg PO HS OBI Stop: 06/29/24 21:59 Lorazepam (Lorazepam 0.5 Mg Tab) 0.5 mg PO BID PRN PRN Reason: Anxiety Stop: 06/29/24 12:30 Magnesium Hydroxide (Magnesium Hydroxide Susp 30 Ml Udc) 30 ml PO DAILY PRN PRN Reason: Constipation Stop: 06/27/24 20:11 Multivitamins/Minerals (Cerovite Adv Formula Tab) 1 tab PO QAM OBI Stop: 06/28/24 10:59 Last Admin: 05/30/24 08:39 Dose: 1 tab Olanzapine (Olanzapine 5 Mg Tablet) 5 mg PO HS OBI Stop: 06/28/24 21:59 Last Admin: 05/29/24 21:36 Dose: 5 mg Olanzapine (Olanzapine 5 Mg Tablet) 5 mg PO HS PRN PRN Reason: insomnia Stop: 06/28/24 21:59 Sertraline HCl (Sertraline Hcl 100 Mg Tablet) 100 mg PO QAM OBI Stop: 06/30/24 08:59 Sodium Chloride (Sodium Chloride 0.65% Na Soln 45 Ml ([place])) 1 - 2 sprays NA PRN PRN PRN Reason: Nasal Dryness/Congestion Stop: 06/27/24 20:11 Mental Health & Subst Abuse Tx Psychiatrist Date Of Appointment With Psychiatric Provider: n/a Therapist Name of Therapist: n/a Field Superintendent Name of Field Superintendent: n/a Post Discharge Appointments Primary Care Physician Name Of Family Doctor/PCP: Dr. Ibanez
[2024-05-30] MEDS: LORazepam 1 MG TAB PO SCH (21:39)
[2024-05-31] MEDS: SERTRALINE HCL 100 MG TABLET PO SCH (08:52)
--- NOTE | 2024-05-31 13:58 | Psychiatric Progress Note ---
Date of Service May 31, 2024 Impression / Recommendations Impression JOSE BECK is a 68-year-old man who currently lives in [place] with his and adult son, has a history of depression, and was admitted on 05/28/24 20:39 on a 201 voluntary commitment for SI with plans and lack of functioning with significant weight loss, poor sleep and inability to work. A:Patient is tolerating the increased dose of Zoloft well and presents improved sleep. Continues to present depressed affect and appears hopeless. Discussed plan to discontinue olanzapine and start aripiprazole; medication side effects and adverse effects discussed with patient and agreeable. Gathered collateral from patient's and updated about care plan. Overall, I spent a total of 45 minutes with this case including review of chart records, nursing report, review of lab work, direct evaluation of the patient at bedside, counseling the patient, multidisciplinary team meeting, orders, documentation, gathering collateral from in the electronic health record. (1) Suicidal ideations: (2) Weight loss, unintentional: (3) Insomnia: (4) Major depressive disorder, recurrent episode with anxious distress: (5) Generalized anxiety disorder: (6) Paresthesias: Plan 05/31/2024: Discontinue gabapentin, olanzapine. Start aripiprazole 2 mg at bedtime. 05/30/2024: Increase sertraline to 100 mg daily. Lorazepam 1 mg at night for sleep. Lorazepam 0.5 mg twice daily as needed for anxiety. 05/29/2024: The patient was admitted to the [facility] ([facility] mental health unit) on q15 min checks (behavioral with suicide precautions) for safety. The patient will participate in group, recreational, and milieu therapies and will be offered additional individual and family sessions as clinically appropriate. -Medications: * Start sertraline 50mg daily * Start multivitamin daily * Start olanzapine 5mg HS and 5mg HS prn for insomnia * Start gabapentin 100mg TID po prn for nerve pain * Start ativan 1mg BID prn for panic attacks * Discontinue mirtazapine as initial ineffective for insomnia, could retrial as symptom burden lessens in coming days/weeks * Consider option for clonidine if overnight panic awakenings persist -Labwork: * Fasting lipid panel in AM * HbA1c * Vit B12 (especially given recent weight loss, poor appetite and new possible peripheral neuropathy) * Vit D Inventory Assets Strengths: supportive relationships, willing to get treatment Needs: safety and stabilization, medication adjustment, additional coping skills, increased outpatient services Suicide Risk Level Suicide Risk Level: High-Moderate (q15 min suicide checks) (severe depression with SI with plan, but feels safe in the hospital and feels able to ask for support ) Risk Factors Assessment Male: Yes : Yes Do You Have Access To A Gun?: No (his family "hid them all") Health Problems: No Mental Health Diagnoses: Yes Substance Use Disorders: No Previous Attempt: Yes Family History of Suicide: No Previous Psychiatric Hospitalization: No Hopelessness: Yes Protective Factors Assessment : Yes Employed: No Stable Relationships: Yes Supportive Family: Yes Good Rapport with Provider: Yes (with PCP) Interval History Identifying Information JOSE BECK is a 68-year-old man who currently lives in [place] with his and adult son, has a history of depression, and was admitted on 05/28/24 20:39 on a 201 voluntary commitment for SI with plans and lack of functioning with significant weight loss, poor sleep and inability to work. Chief Complaint "Financial problems" Review of Systems Sleep Information Total Hours of Sleep: 7 Sleep Comments: HS Remeron Meal Information Percent Meal Consumed - Breakfast: 100 Percent Meal Consumed - Lunch: 100 Percent Meal Consumed - Dinner: 100 Subjective Subjective Patient was seen & assessed and interval progress reviewed with treatment team nursing and social work Overnight patient slept 7 hours. He reports having a better night's rest with Ativan. Says his mornings are more difficult and his mood improved through the day. Denies having GI upset or headache and is tolerating the Zoloft well. He reports noticing the numbness and tingling in his leg has been less prominent. He reflects on the automatic thoughts worksheet and reports all or nothing thinking, fortune telling, should statements, catastrophizing and would engage in these thought patterns even prior to recent financial difficulties and depression onset. Reports continued negative outlook and does not feel hopeful for the future. Called pt's with permission (Rob,Deloris -[phone]): [facility] Jun [facility] f/u arranged. Pt has sleep problems. Believes he has PTSD. Both are not a fan of medications. On zoloft in the past. Pt stopped taking it. [place] pt was getting worse and reluctant to come inpatient but needed to for his mental well-being. Reports paresthesias in legs have been present prior to depression onset. Updated about care plan. Physical Exam Mental Examination Appearance: Disheveled Eye Contact: Fleeting Contact Motor Behavior: Unremarkable Speech: Soft Mood: Depressed, Anxious, Sad and Tearful Affect: Anxious, Dulled, Flat, Nervous and Sad Thought Process: Intact and Linear Thought Content: Intact Hallucinations: None Insight: Poor (to limited) Judgement: Poor (to limited) Vital Signs (Past 24 Hours) Last Vital Signs Temp 36.5 C 05/31/24 06:33 Pulse 78 05/31/24 06:33 Resp 16 05/31/24 06:33 BP 111/76 05/31/24 06:33 Pulse Ox 98 05/28/24 21:09 O2 Del Method Room Air 05/28/24 21:09 Results & Data ([facility]) Current Inpatient Medications Current Inpatient Medications: Current Inpatient Medications Acetaminophen (Acetaminophen 325 Mg Tab) 650 mg PO Q4H PRN PRN Reason: Headache or Minor Fever Stop: 06/27/24 20:11 Al Hydrox/Mg Hydrox/Simethicone (Aluminum/Magnesium Susp 30 Ml Udc) 30 ml PO Q4H PRN PRN Reason: GI Upset Stop: 06/27/24 20:11 Aripiprazole (Aripiprazole 1 Mg/Ml Oral Soln 150 Ml Btl) 2 mg PO HS OBI Stop: 06/30/24 21:59 Bismuth Subsalicylate (Bismuth Subsalicylate 262 Mg Chew) 2 tab PO Q30M PRN PRN Reason: Loose Stool/Diarrhea Stop: 06/27/24 20:11 Hydroxyzine HCl (Hydroxyzine Hcl 25 Mg Tab) 50 mg PO HSZ PRN PRN Reason: Insomnia Stop: 06/27/24 20:11 Hydroxyzine HCl (Hydroxyzine Hcl 25 Mg Tab) 25 mg PO Q4H PRN PRN Reason: Anxiety Stop: 06/27/24 20:11 Lorazepam (Lorazepam 1 Mg Tab) 1 mg PO HS OBI Stop: 06/29/24 21:59 Last Admin: 05/30/24 21:39 Dose: 1 mg Lorazepam (Lorazepam 0.5 Mg Tab) 0.5 mg PO BID PRN PRN Reason: Anxiety Stop: 06/29/24 12:30 Magnesium Hydroxide (Magnesium Hydroxide Susp 30 Ml Udc) 30 ml PO DAILY PRN PRN Reason: Constipation Stop: 06/27/24 20:11 Multivitamins/Minerals (Cerovite Adv Formula Tab) 1 tab PO QAM OBI Stop: 06/28/24 10:59 Last Admin: 05/31/24 08:51 Dose: 1 tab Olanzapine (Olanzapine 5 Mg Tablet) 5 mg PO HS PRN PRN Reason: insomnia Stop: 06/28/24 21:59 Sertraline HCl (Sertraline Hcl 100 Mg Tablet) 100 mg PO QAM OBI Stop: 06/30/24 08:59 Last Admin: 05/31/24 08:52 Dose: 100 mg Sodium Chloride (Sodium Chloride 0.65% Na Soln 45 Ml ([place])) 1 - 2 sprays NA PRN PRN PRN Reason: Nasal Dryness/Congestion Stop: 06/27/24 20:11 Mental Health & Subst Abuse Tx Psychiatrist Date Of Appointment With Psychiatric Provider: n/a Therapist Name of Therapist: n/a Box Hinge And Lock Attacher Name of Box Hinge And Lock Attacher: n/a Post Discharge Appointments Primary Care Physician Name Of Family Doctor/PCP: Dr. Ibanez
[2024-05-31] MEDS: ARIPIprazole 1 MG/ML ORAL SOLN 150 ML BTL PO SCH (21:32)
[2024-05-31] MEDS ORDERED: ARIPiprazole 5 MG TAB PO SCH (22:00)
--- NOTE | 2024-06-01 14:13 | Psychiatric Progress Note ---
Date of Service June 01, 2024 Impression / Recommendations Impression JOSE BECK is a 68-year-old man who currently lives in [place] with his and adult son, has a history of depression, and was admitted on 05/28/24 20:39 on a 201 voluntary commitment for SI with plans and lack of functioning with significant weight loss, poor sleep and inability to work. A: Patient continues to present a depressed affect and intermittent SI. Appears more hopeful today and presents an improvement in sleep. Has been tolerating the medications well and we will plan to continue. Patient was counseled about his medication regimen and potential side effects and adverse effects. Educated about cognitive behavioral therapy and mindfulness meditation. Overall, I spent a total of 30 minutes with this case including review of chart records, nursing report, review of lab work, direct evaluation of the patient at bedside, counseling the patient, multidisciplinary team meeting, orders, documentation, gathering collateral from in the electronic health record. (1) Suicidal ideations: (2) Weight loss, unintentional: (3) Insomnia: (4) Major depressive disorder, recurrent episode with anxious distress: (5) Generalized anxiety disorder: (6) Paresthesias: Plan 06/01/2024: Continue medications and treatment plan. 05/31/2024: Discontinue gabapentin, olanzapine. Start aripiprazole 2 mg at bedtime. 05/30/2024: Increase sertraline to 100 mg daily. Lorazepam 1 mg at night for sleep. Lorazepam 0.5 mg twice daily as needed for anxiety. 05/29/2024: The patient was admitted to the [facility] ([facility]) on q15 min checks (behavioral with suicide precautions) for safety. The patient will participate in group, recreational, and milieu therapies and will be offered additional individual and family sessions as clinically appropriate. -Medications: * Start sertraline 50mg daily * Start multivitamin daily * Start olanzapine 5mg HS and 5mg HS prn for insomnia * Start gabapentin 100mg TID po prn for nerve pain * Start ativan 1mg BID prn for panic attacks * Discontinue mirtazapine as initial ineffective for insomnia, could retrial as symptom burden lessens in coming days/weeks * Consider option for clonidine if overnight panic awakenings persist -Labwork: * Fasting lipid panel in AM * HbA1c * Vit B12 (especially given recent weight loss, poor appetite and new possible peripheral neuropathy) * Vit D Inventory Assets Strengths: supportive relationships, willing to get treatment Needs: safety and stabilization, medication adjustment, additional coping skills, increased outpatient services Suicide Risk Level Suicide Risk Level: High-Moderate (q15 min suicide checks) (severe depression with SI with plan, but feels safe in the hospital and feels able to ask for support ) Risk Factors Assessment Male: Yes : Yes Do You Have Access To A Gun?: No (his family "hid them all") Health Problems: No Mental Health Diagnoses: Yes Substance Use Disorders: No Previous Attempt: Yes Family History of Suicide: No Previous Psychiatric Hospitalization: No Hopelessness: Yes Protective Factors Assessment : Yes Employed: No Stable Relationships: Yes Supportive Family: Yes Good Rapport with Provider: Yes (with PCP) Interval History Identifying Information JOSE BECK is a 68-year-old man who currently lives in [place] with his and adult son, has a history of depression, and was admitted on 05/28/24 20:39 on a 201 voluntary commitment for SI with plans and lack of functioning with significant weight loss, poor sleep and inability to work. Chief Complaint "Difficulty waking up" Review of Systems Sleep Information Total Hours of Sleep: 7.5 Sleep Comments: HS Remeron Meal Information Percent Meal Consumed - Breakfast: 100 Percent Meal Consumed - Lunch: 100 Percent Meal Consumed - Dinner: 100 Subjective Subjective Patient was seen & assessed and interval progress reviewed with treatment team nursing and social work Overnight patient rated her mood 4 out of 10 presents a flat affect. Reports feeling rested and got better sleep however his sleep remains disrupted. Has been attending groups. Worried about financial burden and feels family has to rely on him. Has future plans to find employment. Reports recent intermittent SI which has been improving. Unsure of Abilify and concerned about wrist to renal function; reassured. Physical Exam Mental Examination Appearance: Disheveled Eye Contact: Fleeting Contact Motor Behavior: Unremarkable Speech: Soft Mood: Depressed, Anxious, Sad and Tearful Affect: Anxious, Dulled, Flat, Nervous and Sad Thought Process: Intact and Linear Thought Content: Intact Hallucinations: None Insight: Poor (to limited) Judgement: Poor (to limited) Vital Signs (Past 24 Hours) Last Vital Signs Temp 36.9 C 06/01/24 06:27 Pulse 71 06/01/24 06:27 Resp 16 06/01/24 06:27 BP 123/85 06/01/24 06:27 Pulse Ox 98 05/28/24 21:09 O2 Del Method Room Air 05/28/24 21:09 Results & Data ([facility]) Current Inpatient Medications Current Inpatient Medications: Current Inpatient Medications Acetaminophen (Acetaminophen 325 Mg Tab) 650 mg PO Q4H PRN PRN Reason: Headache or Minor Fever Stop: 06/27/24 20:11 Al Hydrox/Mg Hydrox/Simethicone (Aluminum/Magnesium Susp 30 Ml Udc) 30 ml PO Q4H PRN PRN Reason: GI Upset Stop: 06/27/24 20:11 Aripiprazole (Aripiprazole 1 Mg/Ml Oral Soln 150 Ml Btl) 2 mg PO HS OBI Stop: 06/30/24 21:59 Last Admin: 05/31/24 21:32 Dose: 2 mg Bismuth Subsalicylate (Bismuth Subsalicylate 262 Mg Chew) 2 tab PO Q30M PRN PRN Reason: Loose Stool/Diarrhea Stop: 06/27/24 20:11 Hydroxyzine HCl (Hydroxyzine Hcl 25 Mg Tab) 50 mg PO HSZ PRN PRN Reason: Insomnia Stop: 06/27/24 20:11 Hydroxyzine HCl (Hydroxyzine Hcl 25 Mg Tab) 25 mg PO Q4H PRN PRN Reason: Anxiety Stop: 06/27/24 20:11 Lorazepam (Lorazepam 1 Mg Tab) 1 mg PO HS OBI Stop: 06/29/24 21:59 Last Admin: 05/31/24 21:33 Dose: 1 mg Lorazepam (Lorazepam 0.5 Mg Tab) 0.5 mg PO BID PRN PRN Reason: Anxiety Stop: 06/29/24 12:30 Magnesium Hydroxide (Magnesium Hydroxide Susp 30 Ml Udc) 30 ml PO DAILY PRN PRN Reason: Constipation Stop: 06/27/24 20:11 Multivitamins/Minerals (Cerovite Adv Formula Tab) 1 tab PO QAM OBI Stop: 06/28/24 10:59 Last Admin: 06/01/24 09:06 Dose: 1 tab Olanzapine (Olanzapine 5 Mg Tablet) 5 mg PO HS PRN PRN Reason: insomnia Stop: 06/28/24 21:59 Sertraline HCl (Sertraline Hcl 100 Mg Tablet) 100 mg PO QAM OBI Stop: 06/30/24 08:59 Last Admin: 06/01/24 09:06 Dose: 100 mg Sodium Chloride (Sodium Chloride 0.65% Na Soln 45 Ml ([place])) 1 - 2 sprays NA PRN PRN PRN Reason: Nasal Dryness/Congestion Stop: 06/27/24 20:11 Mental Health & Subst Abuse Tx Psychiatrist Date Of Appointment With Psychiatric Provider: n/a Therapist Name of Therapist: n/a Land Department Head Name of Land Department Head: n/a Post Discharge Appointments Primary Care Physician Name Of Family Doctor/PCP: Dr. Ibanez
[2024-06-01] MEDS: hydrOXYzine HCl 25 MG TAB PO PRN (23:09)
--- NOTE | 2024-06-02 10:55 | Psychiatric Progress Note ---
Date of Service June 02, 2024 Impression / Recommendations Impression JOSE BECK is a 68-year-old man who currently lives in [place] with his and adult son, has a history of depression, and was admitted on 05/28/24 20:39 on a 201 voluntary commitment for SI with plans and lack of functioning with significant weight loss, poor sleep and inability to work. A: Patient did not sleep well last night and will optimize sleep regimen. Patient presents a more reactive affect and is brighter. Endorses being hopeful and denies suicidal ideation with intact reality testing. Educated about sleep hygiene and importance of counseling and treatment. Overall, I spent a total of 30 minutes with this case including review of chart records, nursing report, review of lab work, direct evaluation of the patient at bedside, counseling the patient, multidisciplinary team meeting, orders, documentation, gathering collateral from in the electronic health record. (1) Weight loss, unintentional: (2) Insomnia: (3) Major depressive disorder, recurrent episode with anxious distress: (4) Generalized anxiety disorder: (5) Paresthesias: Plan 06/02/2024: Start trazodone 50 mg at bedtime. 06/01/2024: Continue medications and treatment plan. 05/31/2024: Discontinue gabapentin, olanzapine. Start aripiprazole 2 mg at bedtime. 05/30/2024: Increase sertraline to 100 mg daily. Lorazepam 1 mg at night for sleep. Lorazepam 0.5 mg twice daily as needed for anxiety. 05/29/2024: The patient was admitted to the [facility] ([facility] mental health unit) on q15 min checks (behavioral with suicide precautions) for safety. The patient will participate in group, recreational, and milieu therapies and will be offered additional individual and family sessions as clinically appropriate. -Medications: * Start sertraline 50mg daily * Start multivitamin daily * Start olanzapine 5mg HS and 5mg HS prn for insomnia * Start gabapentin 100mg TID po prn for nerve pain * Start ativan 1mg BID prn for panic attacks * Discontinue mirtazapine as initial ineffective for insomnia, could retrial as symptom burden lessens in coming days/weeks * Consider option for clonidine if overnight panic awakenings persist -Labwork: * Fasting lipid panel in AM * HbA1c * Vit B12 (especially given recent weight loss, poor appetite and new possible peripheral neuropathy) * Vit D Inventory Assets Strengths: supportive relationships, willing to get treatment Needs: safety and stabilization, medication adjustment, additional coping skills, increased outpatient services Suicide Risk Level Suicide Risk Level: High-Moderate (q15 min suicide checks) (severe depression with SI with plan, but feels safe in the hospital and feels able to ask for support ) Risk Factors Assessment Male: Yes : Yes Do You Have Access To A Gun?: No (his family "hid them all") Health Problems: No Mental Health Diagnoses: Yes Substance Use Disorders: No Previous Attempt: Yes Family History of Suicide: No Previous Psychiatric Hospitalization: No Hopelessness: Yes Protective Factors Assessment : Yes Employed: No Stable Relationships: Yes Supportive Family: Yes Good Rapport with Provider: Yes (with PCP) Interval History Identifying Information JOSE BECK is a 68-year-old man who currently lives in [place] with his and adult son, has a history of depression, and was admitted on 05/28/24 20:39 on a 201 voluntary commitment for SI with plans and lack of functioning with significant weight loss, poor sleep and inability to work. Chief Complaint "Tired" Review of Systems Sleep Information Total Hours of Sleep: 6 Sleep Comments: JAMES Ingram and Princess with PRN Vistaril Meal Information Percent Meal Consumed - Breakfast: 100 Percent Meal Consumed - Lunch: 100 Percent Meal Consumed - Dinner: 100 Subjective Subjective Patient was seen & assessed and interval progress reviewed with treatment team nursing and social work Overnight slept 6 hours. He reports waking up early including a back to sleep. Feels anxious. Reports less ruminations overall after stopping his full-time job working 60 hours a week. Reports improved concentration since admission. Says he is tired and not sleeping well. Remains hopeful. Denies SI. Discusses how him ending his life would impact his friends and family. He presents future thinking on how he is going to get out of his financial problems. Physical Exam Mental Examination Appearance: Disheveled Eye Contact: Maintains Eye Contact Motor Behavior: Unremarkable Speech: Soft Mood: Euthymic Affect: Constricted (more reactive and smiling at times today) and Dulled Thought Process: Intact and Linear Thought Content: Intact Hallucinations: None Insight: Poor (to limited) Judgement: Poor (to limited) Vital Signs (Past 24 Hours) Last Vital Signs Temp 36.4 C L 06/02/24 06:35 Pulse 68 06/02/24 06:36 Resp 16 06/02/24 06:35 BP 129/86 06/02/24 06:36 Pulse Ox 98 05/28/24 21:09 O2 Del Method Room Air 05/28/24 21:09 Results & Data ([facility]) Current Inpatient Medications Current Inpatient Medications: Current Inpatient Medications Acetaminophen (Acetaminophen 325 Mg Tab) 650 mg PO Q4H PRN PRN Reason: Headache or Minor Fever Stop: 06/27/24 20:11 Al Hydrox/Mg Hydrox/Simethicone (Aluminum/Magnesium Susp 30 Ml Udc) 30 ml PO Q4H PRN PRN Reason: GI Upset Stop: 06/27/24 20:11 Aripiprazole (Aripiprazole 1 Mg/Ml Oral Soln 150 Ml Btl) 2.5 mg PO HS OBI Stop: 07/02/24 21:59 Bismuth Subsalicylate (Bismuth Subsalicylate 262 Mg Chew) 2 tab PO Q30M PRN PRN Reason: Loose Stool/Diarrhea Stop: 06/27/24 20:11 Hydroxyzine HCl (Hydroxyzine Hcl 25 Mg Tab) 50 mg PO HSZ PRN PRN Reason: Insomnia Stop: 06/27/24 20:11 Last Admin: 06/01/24 23:09 Dose: 50 mg Hydroxyzine HCl (Hydroxyzine Hcl 25 Mg Tab) 25 mg PO Q4H PRN PRN Reason: Anxiety Stop: 06/27/24 20:11 Lorazepam (Lorazepam 1 Mg Tab) 1 mg PO HS OBI Stop: 06/29/24 21:59 Last Admin: 06/01/24 21:23 Dose: 1 mg Lorazepam (Lorazepam 0.5 Mg Tab) 0.5 mg PO BID PRN PRN Reason: Anxiety Stop: 06/29/24 12:30 Magnesium Hydroxide (Magnesium Hydroxide Susp 30 Ml Udc) 30 ml PO DAILY PRN PRN Reason: Constipation Stop: 06/27/24 20:11 Multivitamins/Minerals (Cerovite Adv Formula Tab) 1 tab PO QAM OBI Stop: 06/28/24 10:59 Last Admin: 06/02/24 09:00 Dose: 1 tab Sertraline HCl (Sertraline Hcl 100 Mg Tablet) 100 mg PO QAM OBI Stop: 06/30/24 08:59 Last Admin: 06/02/24 09:00 Dose: 100 mg Sodium Chloride (Sodium Chloride 0.65% Na Soln 45 Ml ([place])) 1 - 2 sprays NA PRN PRN PRN Reason: Nasal Dryness/Congestion Stop: 06/27/24 20:11 Trazodone HCl (Trazodone Hcl 50 Mg Tab) 50 mg PO HS OBI Stop: 07/02/24 21:59 Mental Health & Subst Abuse Tx Psychiatrist Date Of Appointment With Psychiatric Provider: n/a Therapist Name of Therapist: n/a Vacuum Repairer Name of Vacuum Repairer: n/a Post Discharge Appointments Primary Care Physician Name Of Family Doctor/PCP: Dr. Ibanez
[2024-06-02] MEDS: traZODone HCL 50 MG TAB PO SCH (21:43)
[2024-06-02] MEDS: ARIPIprazole 1 MG/ML ORAL SOLN 150 ML BTL PO SCH (21:43)
--- NOTE | 2024-06-03 14:00 | Psychiatric Progress Note ---
Date of Service June 03, 2024 Impression / Recommendations Impression JOSE BECK is a 68-year-old man who currently lives in [place] with his and adult son, has a history of depression, and was admitted on 05/28/24 20:39 on a 201 voluntary commitment for SI with plans and lack of functioning with significant weight loss, poor sleep and inability to work. A: Patient appears more optimistic and is future oriented. He denies suicidal ideation and is hopeful. Continues to have sleep impairments and will adjust his medications. Overall, I spent a total of 25 minutes with this case including review of chart records, nursing report, review of lab work, direct evaluation of the patient at bedside, counseling the patient, multidisciplinary team meeting, orders, documentation in the electronic health record. (1) Weight loss, unintentional: (2) Insomnia: (3) Major depressive disorder, recurrent episode with anxious distress: (4) Generalized anxiety disorder: (5) Paresthesias: Plan 06/03/2024: Increase trazodone to 100 mg daily. 06/02/2024: Start trazodone 50 mg at bedtime. 06/01/2024: Continue medications and treatment plan. 05/31/2024: Discontinue gabapentin, olanzapine. Start aripiprazole 2 mg at bedtime. 05/30/2024: Increase sertraline to 100 mg daily. Lorazepam 1 mg at night for sleep. Lorazepam 0.5 mg twice daily as needed for anxiety. 05/29/2024: The patient was admitted to the [facility] ([facility] mental health unit) on q15 min checks (behavioral with suicide precautions) for safety. The patient will participate in group, recreational, and milieu therapies and will be offered additional individual and family sessions as clinically appropriate. -Medications: * Start sertraline 50mg daily * Start multivitamin daily * Start olanzapine 5mg HS and 5mg HS prn for insomnia * Start gabapentin 100mg TID po prn for nerve pain * Start ativan 1mg BID prn for panic attacks * Discontinue mirtazapine as initial ineffective for insomnia, could retrial as symptom burden lessens in coming days/weeks * Consider option for clonidine if overnight panic awakenings persist -Labwork: * Fasting lipid panel in AM * HbA1c * Vit B12 (especially given recent weight loss, poor appetite and new possible peripheral neuropathy) * Vit D Inventory Assets Strengths: supportive relationships, willing to get treatment Needs: safety and stabilization, medication adjustment, additional coping skills, increased outpatient services Suicide Risk Level Suicide Risk Level: High-Moderate (q15 min suicide checks) (severe depression with SI with plan, but feels safe in the hospital and feels able to ask for support ) Risk Factors Assessment Male: Yes : Yes Do You Have Access To A Gun?: No (his family "hid them all") Health Problems: No Mental Health Diagnoses: Yes Substance Use Disorders: No Previous Attempt: Yes Family History of Suicide: No Previous Psychiatric Hospitalization: No Hopelessness: Yes Protective Factors Assessment : Yes Employed: No Stable Relationships: Yes Supportive Family: Yes Good Rapport with Provider: Yes (with PCP) Interval History Identifying Information JOSE BECK is a 68-year-old man who currently lives in [place] with his and adult son, has a history of depression, and was admitted on 05/28/24 20:39 on a 201 voluntary commitment for SI with plans and lack of functioning w ith significant weight loss, poor sleep and inability to work. Chief Complaint "Could not sleep" Review of Systems Sleep Information Total Hours of Sleep: 7.5 Sleep Comments: JAMES Ingram and Princess with PRN Vistaril Meal Information Percent Meal Consumed - Breakfast: 100 Percent Meal Consumed - Lunch: 100 Percent Meal Consumed - Dinner: 100 Subjective Subjective Patient was seen & assessed and interval progress reviewed with treatment team nursing and social work Patient complains of poor sleep. Said it took him a while to fall asleep and then could not stay asleep and was up early. Reports not feeling rested and it is difficult to get through his day. When discussing past effect of antihistamines he reports [id number] Benadryl has minimal effect and does not make him sedated. He is looking forward to discharge tomorrow and appears hopeful. He is seen journaling his plans for the future. He reports future plans to organize his finances and budget. He says that because he is not working he will have more time to focus. Says that his does not work so his family is reliant on him for benefits including insurance. He denies suicidal ideation. Physical Exam Mental Examination Appearance: Disheveled Eye Contact: Maintains Eye Contact Motor Behavior: Unremarkable Speech: Soft Mood: Euthymic Affect: Constricted (more reactive and smiling at times today) and Dulled Thought Process: Intact and Linear Thought Content: Intact Hallucinations: None Insight: Poor (to limited) Judgement: Poor (to limited) Vital Signs (Past 24 Hours) Last Vital Signs Temp 36.4 C L 06/03/24 06:34 Pulse 82 06/03/24 06:34 Resp 16 06/03/24 06:34 BP 118/81 06/03/24 06:34 Pulse Ox 98 05/28/24 21:09 O2 Del Method Room Air 05/28/24 21:09 Results & Data ([facility]) Current Inpatient Medications Current Inpatient Medications: Current Inpatient Medications Acetaminophen (Acetaminophen 325 Mg Tab) 650 mg PO Q4H PRN PRN Reason: Headache or Minor Fever Stop: 06/27/24 20:11 Al Hydrox/Mg Hydrox/Simethicone (Aluminum/Magnesium Susp 30 Ml Udc) 30 ml PO Q4H PRN PRN Reason: GI Upset Stop: 06/27/24 20:11 Aripiprazole (Aripiprazole 1 Mg/Ml Oral Soln 150 Ml Btl) 2.5 mg PO HS OBI Stop: 07/02/24 21:59 Last Admin: 06/02/24 21:43 Dose: 2.5 mg Bismuth Subsalicylate (Bismuth Subsalicylate 262 Mg Chew) 2 tab PO Q30M PRN PRN Reason: Loose Stool/Diarrhea Stop: 06/27/24 20:11 Hydroxyzine HCl (Hydroxyzine Hcl 25 Mg Tab) 50 mg PO HSZ PRN PRN Reason: Insomnia Stop: 06/27/24 20:11 Last Admin: 06/01/24 23:09 Dose: 50 mg Hydroxyzine HCl (Hydroxyzine Hcl 25 Mg Tab) 25 mg PO Q4H PRN PRN Reason: Anxiety Stop: 06/27/24 20:11 Lorazepam (Lorazepam 1 Mg Tab) 1 mg PO HS OBI Stop: 06/29/24 21:59 Last Admin: 06/02/24 21:43 Dose: 1 mg Lorazepam (Lorazepam 0.5 Mg Tab) 0.5 mg PO BID PRN PRN Reason: Anxiety Stop: 06/29/24 12:30 Magnesium Hydroxide (Magnesium Hydroxide Susp 30 Ml Udc) 30 ml PO DAILY PRN PRN Reason: Constipation Stop: 06/27/24 20:11 Multivitamins/Minerals (Cerovite Adv Formula Tab) 1 tab PO QAM OBI Stop: 06/28/24 10:59 Last Admin: 06/03/24 09:07 Dose: 1 tab Sertraline HCl (Sertraline Hcl 100 Mg Tablet) 100 mg PO QAM OBI Stop: 06/30/24 08:59 Last Admin: 06/03/24 09:07 Dose: 100 mg Sodium Chloride (Sodium Chloride 0.65% Na Soln 45 Ml ([place])) 1 - 2 sprays NA PRN PRN PRN Reason: Nasal Dryness/Congestion Stop: 06/27/24 20:11 Trazodone HCl (Trazodone Hcl 100 Mg Tab) 100 mg PO HS OBI Stop: 07/03/24 21:59 Mental Health & Subst Abuse Tx Psychiatrist Name of Psychiatrist: Robin Vickers ([address] [place] [address]) Psychiatrist's Date Of Appointment With Psychiatric Provider: 06/17/24 Time of Appointment with Psychiatrist: 2pm Psychiatric Appointment Comment: In person Therapist Name of Therapist: Lavon Escalante Therapist's Date of Therapist Appointment: Saturday06/05/24 Time of Therapist Appointment: 10AM Therapy Appointment Comment: They will text you zoom link and email you intake forms to fill out Auto Leasing Manager Name of Auto Leasing Manager: n/a Post Discharge Appointments Primary Care Physician Name Of Family Doctor/PCP: Dr. Ibanez
[2024-06-03] MEDS: traZODone HCL 100 MG TAB PO SCH (21:07)
[2024-06-04 06:40] VITALS: BP 116/74; PULSE 79; TEMP 97.9
--- NOTE | 2024-06-04 09:11 | Discharge Summary ---
Date of Service June 04, 2024 History of Present Illness Sadiq presents for psychiatric admission for worsening depression, anxiety, insomnia, lack of functioning and SI with plan of jumping in front of a truck or stabbing himself in the heart with a knife in the context of multiple psychosocial stressors including financial scam in January, intense work schedule, and lack of sleep. He underwent significant financial losses of almost $900,000 -1.2 million in January, which set off significant mood symptoms, initially anxiety which has spiraled into depression. He feels immense guilt and shame that he can't support his family. He also reports ongoing harassment from scammers via text messages, contributing to his anxiety. He describes over the last three weeks feeling like he couldn't "remember how to cook" so recently put in notice to leave his job. Discussed possibility of any memory issues or changes in cognitive ability, he endorses struggling to keep up at work and not being able to come up with new recipes but otherwise denies any significant cognitive changes or decline. He denies any connection between possible cognitive decline and the financial scam. He endorses depressive symptoms including "shame, guilt", exhausted but cannot sleep (feels he only slept a few hours last night), tearfulness, anhedonia (hiking, trail running, biking, woodworking but now has no interest in any of these things), decreased motivation, helplessness, hopelessness, decreased appetite (thinks he has lost about 20lbs over 4 months), and decreased sleep only about 1-2 hours per night (difficulty falling asleep and frequent awakenings, "jolts" awake and "start thinking of all the mistakes I've made". SI has been occurring since January, intensified this last week to the point of wanting to walk in front of [place] [address] or using a knife to "jam it into my heart". He also endorses symptoms of anxiety that started initially including generalized worries, shakiness, easily overwhelmed and panic attacks (typically at least once per day). The scammers continue to text and harass him. Reports recently unplugging the TV because "I get no asrah from watching it". He reports his house and water features outside "aren't mine anymore because I cannot afford them". Reports since January he's had tingling in his feet that feels like "neuropathy". Asked more about this, he reflects this could have come after poor nutritional intake but he's not sure. Denies any other neurological symptoms. He is not currently prescribed any psychiatric medications. Two days ago tried one dose of an old script of sertraline 50mg pill. Psychiatric ROS notable for no current nor history of symptoms of monisha, PTSD, OCD nor eating disorder. Possible recent symptoms of paranoid delusions per collateral history provided to ED CM. Additional collateral per ED CM note from 05/28/2024: "Met with patient and his Deloris to complete MH evaluation. Patient reports feeling relaxed at this time as he was given a Lorazepam. Patient's states this was the calmest she has seen him in 4 months.Patient lives with his and grown son. Patient is not prescribed in any MH medication. He does not have any outpatient providers. Patient has never had any inpatient MH treatment. Patient reports one suicide attempt when he was in college where he slit his wrists. He began outpatient therapy after this attempt, but never received inpatient treatment. Patient reports a poor appetite and has lost a significant amount of weight. He sleeps no more than two hours every night as he is restless, cannot fall asleep, cannot stay asleep and when he does sleep he yells out and thrashes in his sleep. Mariella moore reports panic attacks daily, especially when talking about his current situation. He states his anxiety is at a constant 10. Patient becomes SOB and has chest pains. He denies any manic symptoms. Patient expresses some paranoia and feels he may be seeing things that are not there. Patient's states he obsesses over certain things such as the solar panels in their home as he feels they are the only thing in his life that he has control over at this time. Patient is not future oriented. He states he was at one point, but does not see a future of any sort for himself. Patient denies SIB, but will hit himself in the head when anxious. He reports being unable to be still and is always restless or pacing. No D/A use. No nicotine use. Patient denies aggression or violence. He has no access to any guns as his and son hid the guns after patient mentioned thoughts of suicide. 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 Patient reports feeling his life is out of control and the only way out is to commit suicide. Patient reports being unemployed currently as he quit his job in January due to it being too overwhelming for him. He states he has been suicidal since January after being scammed out of 1.2 million dollars involving a [employer] scam where he bought bitcoin, traded it for short term contracts, and was then fined for Arbitrage trading.. His states he has never been involved in anything like this before, that this is not of his character, but he was then fined money for the arbitrage trading, refinanced his home, and fined more money. He has since reached out to the [facility] ([employer]), [employer], [employer] and the [employer] office. Patient feels defeated and as if he is never going to come out of this. Patient reports that he felt suicidal before coming to the ED, but was "not really" feeling suicidal at this time due to medication, but does admit to having several plans. Patient states his and son can remove the weapons from the home, but this would not stop him from walking in front of a semi-truck as he has thought of doing it several times. Patient's states he has been paranoid and has unplugged their waterfall in their backyard as he does not feel it is his anymore, and has unplugged all of their TV's as he feels the TV's will somehow link him to the individual that scammed him in the first place. CM talked with patient about inpatient MH treatment, patient and agree that this is in his best interest at this time." Physical Exam Mental Examination Appearance: Disheveled Eye Contact: Maintains Eye Contact Motor Behavior: Unremarkable Speech: Soft Mood: Euthymic Affect: Constricted (more reactive and smiling at times today) and Dulled Thought Process: Intact and Linear Thought Content: Intact Hallucinations: None Insight: Fair (to limited) Judgement: Poor (to limited, improved) Vital Signs (Past 24 Hours) Last Vital Signs Temp 36.6 C 06/04/24 06:38 Pulse 79 11/21/24 06:39 Resp 16 06/04/24 06:38 BP 116/74 06/04/24 06:39 Pulse Ox 98 05/28/24 21:09 O2 Del Method Room Air 05/28/24 21:09 Principal Diagnosis Major depressive disorder, recurrent episode with anxious distress Psychiatric Data See daily stay summary. In short, safety was maintained and the patient was cooperative with care. Medication changes included titrating Sertraline to 100mg QD, starting Abilify 2mg QD for SSRI augmentation, Lorazepam 1mg HS and Trazodone 100mg HS for sleep and they tolerated this well. A family session was held and safety plan was completed prior to discharge. Patient presented late life depression, likely 2nd episode after financial stressors where money was gambled and lost to a [employer] scam. He presented weight loss, significant sleep impairments in addition to global depression symptoms. He presented an improvement in sleep, brighter and more reactive affect, resolution of SI, more hopeful for the future, and was making rational and logical plans about the future. He was encouraged to engage in CBT for cognitive distortions and agreeable. Day of Discharge Assessment Today the patient voices readiness for discharge. They note improvement in mood and deny thoughts to harm self or others. Thoughts remain organized and they are improved from admission. There is no evidence of psychosis. They agree to take mediations as prescribed and keep follow-up appointments. They are stable for discharge to outpatient level of care. Transition of Care Transition Of Care Record: was reviewed with the patient Advance Directives Advance Directives Information Provided: Yes Advance Directives: No Mental Health Advance Directive: No Advance Directives on File: No Living Will: No Power of Security Messenger: No Advance Directives Reason:: Declines as Mental Health Visit. Risk Factors Assessment Male: Yes : Yes Do You Have Access To A Gun?: No (his family "hid them all") Health Problems: No Mental Health Diagnoses: Yes Substance Use Disorders: No Previous Attempt: Yes Family History of Suicide: No Previous Psychiatric Hospitalization: No Hopelessness: Yes Protective Factors Assessment : Yes Employed: No Stable Relationships: Yes Supportive Family: Yes Good Rapport with Provider: Yes (with PCP) Discharge Data Lab Results 05/28/24 05/30/24 15:15 07:31 WBC 9.76 RBC 5.49 Hgb 17.1 Hct 49.2 MCV 89.6 MCH 31.1 MCHC 34.8 RDW Std Deviation 41.6 RDW Coeff of Bia 12.7 Plt Count 323 MPV 9.1 L Immature Gran % (Auto) 0.5 Neut % (Auto) 70.4 Lymph % (Auto) 20.8 [place] % (Auto) 7.4 Eos % (Auto) 0.4 Baso % (Auto) 0.5 Neut # (Auto) 6.87 H Lymph # (Auto) 2.03 [place] # (Auto) 0.72 H Eos # (Auto) 0.04 Baso # (Auto) 0.05 Immature Gran # (Auto) 0.05 Sodium 138 Potassium 4.2 Chloride 101 Carbon Dioxide 29 Anion Gap 8 BUN 11 Creatinine 0.90 Est Cr Clr Drug Dosing 79.6 eGFR 93.61 BUN/Creatinine Ratio 12.2 Glucose 105 H Estimat Average Glucose 105 Hemoglobin A1c 5.3 Calcium 10.3 Total Bilirubin 0.7 AST 24 ALT 26 Alkaline Phosphatase 56 Total Protein 7.4 Albumin 5.0 Globulin 2.4 L Albumin/Globulin Ratio 2.1 H Triglycerides 169 H Cholesterol 172 LDL Cholesterol, Calc 93 VLDL Cholesterol, Calc 34 H HDL Cholesterol 45 Cholesterol/HDL Ratio 3.8 Vitamin B12 458 25-OH Vitamin D Total 47.9 TSH 1.971 Urine Color Yellow Urine Appearance Clear Urine pH 7.0 Ur Specific [place] 1.005 Urine Protein Negative Urine Glucose (UA) Negative Urine Ketones Negative Urine Blood Negative Urine Nitrite Negative Urine Bilirubin Negative Urine Urobilinogen Negative Ur Leukocyte Esterase Negative Salicylates < 3.0 L Urine Opiates Screen Neg Ur Methadone, Qual Neg Urine Fentanyl Screen Neg Acetaminophen < 3 L Urine Barbiturates Neg Ur Phencyclidine (PCP) Neg U Amphetamin/Meth Scrn Neg MDMA (Ecstasy) Screen Neg U Benzodiazepines Scrn Neg Ur Cocaine Metabolite Neg U Marijuana (THC) Screen Neg Ethyl Alcohol mg/dL < 10.0 SARS-CoV-2, RNA, NAAT NEGATIVE Hospital Course (1) Weight loss, unintentional: (2) Insomnia: (3) Major depressive disorder, recurrent episode with anxious distress: (4) Generalized anxiety disorder: (5) Paresthesias: Plan 06/03/2024: Increase trazodone to 100 mg daily. 06/02/2024: Start trazodone 50 mg at bedtime. 06/01/2024: Continue medications and treatment plan. 05/31/2024: Discontinue gabapentin, olanzapine. Start aripiprazole 2 mg at bedtime. 05/30/2024: Increase sertraline to 100 mg daily. Lorazepam 1 mg at night for sleep. Lorazepam 0.5 mg twice daily as needed for anxiety. 05/29/2024: The patient was admitted to the [facility] ([facility]) on q15 min checks (behavioral with suicide precautions) for safety. The patient will participate in group, recreational, and milieu therapies and will be offered additional individual and family sessions as clinically appropriate. -Medications: * Start sertraline 50mg daily * Start multivitamin daily * Start olanzapine 5mg HS and 5mg HS prn for insomnia * Start gabapentin 100mg TID po prn for nerve pain * Start ativan 1mg BID prn for panic attacks * Discontinue mirtazapine as initial ineffective for insomnia, could retrial as symptom burden lessens in coming days/weeks * Consider option for clonidine if overnight panic awakenings persist -Labwork: * Fasting lipid panel in AM * HbA1c * Vit B12 (especially given recent weight loss, poor appetite and new possible peripheral neuropathy) * Vit D Mental Health & Subst Abuse Tx Psychiatrist Name of Psychiatrist: Robin Vickers ([address] [place] [address]) Psychiatrist's Date Of Appointment With Psychiatric Provider: 06/17/24 Time of Appointment with Psychiatrist: 2pm Psychiatric Appointment Comment: In person Therapist Name of Therapist: Lavon Escalante Therapist's Date of Therapist Appointment: Saturday06/05/24 Time of Therapist Appointment: 10AM Therapy Appointment Comment: They will text you zoom link and email you intake forms to fill out Vat House Supervisor Name of Vat House Supervisor: n/a Post Discharge Appointments Primary Care Physician Name Of Family Doctor/PCP: Dr. Ibanez Discharge Plan Discharge Items Patient Disposition: Home - Self-Care Reason For Visit: MDD Discharge Diagnosis: (1) Weight loss, unintentional: (2) Insomnia: (3) Major depressive disorder, recurrent episode with anxious distress: (4) Generalized anxiety disorder: (5) Paresthesias: Condition on Discharge: Fair Activity: Resume your previous activity Non-emergency contact: Primary Care Provider and Psychiatrist Call non-emergency contact if: you have any medication questions and your symptoms worsen Follow-up/Referrals: Jay Helms MD [Primary Care Provider] - Diet: Regular Addtl Attending Provider Instructions: DEPRESSION/ANXIETY -Continue Sertraline 100mg daily (can be taken anytime of the day) -Continue Aripiprazole 2mg daily (can be taken anytime of the day) SLEEP -Continue Lorazepam 1mg at bedtime (if sleep improves, try to cut down to 0.5mg and then discontinue) -Continue Trazodone 100mg at bedtime Engage in regular outpatient counseling. Work on cognitive behavioral therapy. Describe your treatment goals to therapist to align expectations. Regular exercise, healthy diet, time with your loved ones, and self care Pending Studies at Discharge: No Stand-Alone Forms: My [employer], Smoking Cessation Medications and DC Order Prescriptions: New aripiprazole 2 mg tablet 2 mg PO HS Qty: 30 0RF sertraline 100 mg Tablet 100 mg PO QAM Qty: 30 0RF trazodone 100 mg Tablet 100 mg PO HS Qty: 30 0RF lorazepam 1 mg Tablet 1 mg PO HS Qty: 30 0RF Discharge Orders: Discharge Order (Routine); Ordered 06/04/24 Ordered By: Castro Ball Admission Data Admit Date/Time: 05/28/24 20:39 Attending Provider: Castro Ball Admit Provider: Shy Aj Primary Care Provider: Jay Helms V. C[place] [address] D/C day mgmt > 30 min Patient Type Established History Detailed Exam Detailed Medical Decision Making Moderate Complexity Diagnoses Weight loss, unintentional R63.4 Insomnia G47.00 Major depressive disorder, recurrent episode with anxious distress F33.9 Generalized anxiety disorder F41.1 Paresthesias R20.2
== END 2024-06-04 10:46 | disposition home or self-care (01) | DRG 885 ==
LOC: ED 14:52 → 3S 20:18 → SUATTDRO 20:39